=== PATIENT | female | born 1990 | race American Indian/Alaskan Native ===

== ENCOUNTER 2018-10-24 13:12 | Inpatient (IN) | payer SELFPAY ==
--- NOTE | 2018-10-24 14:06 | Emergency Department Report ---
Blank Doc - Documentation Documentation: 28 y o f with no pmh presents with left flank pain ua/upt reevaluate
[2018-10-24 14:59] LABS: Bacteria,Urine 3+ /HPF (Negative); Bilirubin,Urine NEG (Negative); Blood,Urine LG (Negative); Color,Urine Red (Yellow); Mucus,Urine 1+ /HPF
[2018-10-24 15:00] LABS: RBC,Urine > 182.0 /HPF (0.0-6.0)
[2018-10-24 15:04] LABS: HCG Qualitative,Urine Negative (Negative)
[2018-10-24] MEDS ORDERED: NACL 0.9% 1000 ML 1,000 ML IV ONE ×2 (17:48→19:56)
[2018-10-24] MEDS ORDERED: LEVAQUIN PO ONE (17:48)
[2018-10-24] MEDS ORDERED: TORADOL IV ONE (17:51)
--- NOTE | 2018-10-24 17:54 | Emergency Department Report ---
HPI - HPI HPI: Room 17 The patient is a 28-year-old female presented with a chief complaint pain. Patient states for the past 5 days she's had intermittent left flank pain described as burning in nature. Patient states Tylenol has not helped. Patient denies fever or nausea/vomiting. Patient denies dysuria or hematuria. The patient currently gives her pain a score of 7/10 Location: Left Flank Duration: 5 days Quality: burning Severity: 7/10 Modifying factors: [see above] Context: [see above] Mode of transportation: [not driving] <GASPER ALBRIGHT - Last Filed: 10/24/18 19:52> <ANNIE VALENZUELA - Last Filed: 10/25/18 05:46> - General Chief Complaint: Back Pain/Injury Time Seen by Provider: 10/24/18 14:03 ED Past Medical Hx - Past Medical History Additional medical history: Anemia - Surgical History Past Surgical History?: No - Family History Family history: no significant - Social History Smoking Status: Never Smoker Substance Use Type: None (denies illicit drug use), Alcohol (occasional) <GASPER ALBRIGHT - Last Filed: 10/24/18 19:52> <ANNIE VALENZUELA - Last Filed: 10/25/18 05:46> - Medications Home Medications: Home Medications Medication Instructions Recorded Confirmed Last Taken Type HYDROcodone/APAP 5-325 [[place] 1 - 2 each PO Q6HR PRN #14 tablet 10/24/18 Unknown Rx 5/325] RX: Ibuprofen [Motrin 800 MG tab] 800 mg PO Q8HR PRN #20 tablet 10/24/18 Unknown Rx levoFLOXacin [Levaquin TAB] 500 mg PO QDAY #10 tablet 10/24/18 Unknown Rx ED Review of Systems ROS: Stated complaint: LFT SIDE BACK PAIN/EXTREME Other details as noted in HPI Constitutional: denies: fever Eyes: denies: eye pain ENT: denies: throat pain Respiratory: no symptoms reported Cardiovascular: denies: chest pain Endocrine: no symptoms reported Gastrointestinal: abdominal pain. denies: nausea, vomiting Genitourinary: denies: dysuria, hematuria Musculoskeletal: back pain Neurological: denies: headache <GASPER ALBRIGHT - Last Filed: 10/24/18 19:52> ROS: Stated complaint: LFT SIDE BACK PAIN/EXTREME Other details as noted in HPI <ANNIE VALENZUELA - Last Filed: 10/25/18 05:46> Physical Exam - Physical Exam Vital Signs: Vital Signs 10/24/18 14:02 Temperature 98.8 F Pulse Rate 106 H Respiratory 16 Rate Blood Pressure 123/61 O2 Sat by Pulse 100 Oximetry Physical Exam: GENERAL: The patient is well-developed well-nourished female lying on stretcher not appearing to be in acute distress. [] HEENT: Normocephalic. Atraumatic. Extraocular motions are intact. Patient has moist mucous membranes. NECK: Supple. Trachea midline CHEST/LUNGS: Clear to auscultation. There is no respiratory distress noted. HEART/CARDIOVASCULAR: Regular. There is no tachycardia. There is no gallop rub or murmur. ABDOMEN: Abdomen is soft, with mild discomfort to palpation in the left lower quadrant. Patient has normal bowel sounds. There is no abdominal distention. SKIN: There is no rash. There is no edema. There is no diaphoresis. NEURO: The patient is awake, alert, and oriented. The patient is cooperative. The patient has normal speech MUSCULOSKELETAL: There is no CVA tenderness. There is no evidence of acute injury. <GASPER ALBRIGHT - Last Filed: 10/24/18 19:52> - Physical Exam Vital Signs: Vital Signs 10/24/18 10/24/18 10/24/18 14:02 17:59 18:00 Temperature 98.8 F Pulse Rate 106 H Respiratory 16 Rate Blood Pressure 123/61 Blood Pressure [Right] O2 Sat by Pulse 100 96 81 L Oximetry 10/24/18 10/24/18 10/24/18 18:10 18:16 18:28 Temperature 98.3 F Pulse Rate 135 H Respiratory 15 14 18 Rate Blood Pressure 142/53 Blood Pressure 142/53 [Right] O2 Sat by Pulse 98 98 Oximetry 10/24/18 10/24/18 10/24/18 18:30 20:06 20:27 Temperature 102.3 F H Pulse Rate 136 H 155 H Respiratory 23 25 H Rate Blood Pressure 142/53 142/53 Blood Pressure [Right] O2 Sat by Pulse 95 Oximetry <ANNIE VALENZUELA - Last Filed: 10/25/18 05:46> ED Course Vital Signs 10/24/18 14:02 Temperature 98.8 F Pulse Rate 106 H Respiratory 16 Rate Blood Pressure 123/61 O2 Sat by Pulse 100 Oximetry <GASPER ALBRIGHT - Last Filed: 10/24/18 19:52> Vital Signs 10/24/18 10/24/18 10/24/18 14:02 17:59 18:00 Temperature 98.8 F Pulse Rate 106 H Respiratory 16 Rate Blood Pressure 123/61 Blood Pressure [Right] O2 Sat by Pulse 100 96 81 L Oximetry 10/24/18 10/24/18 10/24/18 18:10 18:16 18:28 Temperature 98.3 F Pulse Rate 135 H Respiratory 15 14 18 Rate Blood Pressure 142/53 Blood Pressure 142/53 [Right] O2 Sat by Pulse 98 98 Oximetry 10/24/18 10/24/18 10/24/18 18:30 20:06 20:27 Temperature 102.3 F H Pulse Rate 136 H 155 H Respiratory 23 25 H Rate Blood Pressure 142/53 142/53 Blood Pressure [Right] O2 Sat by Pulse 95 Oximetry - Reevaluation(s) Reevaluation #1: 10/24/18 22:18 Received signout from the preceding physician, Dr. Albright, to follow-up on CT scan. CT scan interpretation is reviewed and appreciated. I go back to evaluate the patient. She complains of nontraumatic left-sided flank pain, which started over the past day or so. However, she has no pain at this time. Patient found to be tachycardic and febrile. Her abdomen is soft and benign with no rebound, guarding or peritoneal signs. She has no CVA tenderness. Patient called as a code sepsis secondary to tachycardia and fever. Additional laboratory studies are obtained. Patient is found to be anemic, and hypokalemic with a lactic acidosis. We will give her IV fluids, acetaminophen, broaden antibiotic coverage, transfuse packed red blood cells, and replete potassium. We will obtain a transvaginal ultrasound to exclude torsion, although clinically, I doubt torsion at this time and she has no abdominal tenderness or rebound. She also has no abdominal pain at this time. We will also obtain a CT scan of the abdomen and pelvis. Once her diagnostics have resulted, we will discuss with the appropriate consulting services, and arrange admission. Reevaluation #2: 10/25/18 00:[address] a/p with IV contrast suggest tubo ovarian abscess. gynecology paged Reevaluation #3: 10/25/18 00:16 CT scan and ultrasound confirmed tubo-ovarian abscess. Patient feeling improved. Discussed with multi punch operator construction accountant, Dr. James, who will see the patient in consultation. Discussed with Hospital physician, Dr. Grant, who has accepted the patient to the medical service. <INSHIANNIE PONCE - Last Filed: 10/25/18 05:46> ED Medical Decision Making - Differential Diagnosis pyelonephritis, renal colic <GASPER ALBRIGHT - Last Filed: 10/24/18 19:52> - Lab Data Result diagrams: 10/24/18 20:44 10/24/18 20:44 Vital Signs 10/24/18 10/24/18 10/24/18 14:02 17:59 18:00 Temperature 98.8 F Pulse Rate 106 H Respiratory 16 Rate Blood Pressure 123/61 Blood Pressure [Right] O2 Sat by Pulse 100 96 81 L Oximetry 10/24/18 10/24/18 10/24/18 18:10 18:16 18:28 Temperature 98.3 F Pulse Rate 135 H Respiratory 15 14 18 Rate Blood Pressure 142/53 Blood Pressure 142/53 [Right] O2 Sat by Pulse 98 98 Oximetry 10/24/18 10/24/18 10/24/18 18:30 20:06 20:16 Temperature Pulse Rate 136 H 155 H 138 H Respiratory 23 25 H 31 H Rate Blood Pressure 142/53 142/53 142/53 Blood Pressure [Right] O2 Sat by Pulse 95 90 Oximetry 10/24/18 10/24/18 10/24/18 20:27 20:30 20:46 Temperature 102.3 F H Pulse Rate 141 H 133 H Respiratory 19 28 H Rate Blood Pressure 142/53 142/53 Blood Pressure [Right] O2 Sat by Pulse 95 Oximetry Lab Results 10/24/18 10/24/18 10/24/18 Range/Units 14:20 14:20 20:44 WBC 9.7 (4.5-11.0) K/mm3 RBC 3.46 L (3.65-5.03) M/mm3 Hgb 5.2 L* (10.1-14.3) gm/dl Hct 18.5 L* (30.3-42.9) % MCV 54 L (79-97) fl MCH 15 L (28-32) pg MCHC 28 L (30-34) % RDW 21.5 H (13.2-15.2) % Plt Count 424 (140-440) K/mm3 Lymph % (Auto) Fleece Tier [place] % (Auto) Fleece Tier Eos % (Auto) Fleece Tier Baso % (Auto) Fleece Tier Lymph # Fleece Tier Perkins # Fleece Tier Eos # Fleece Tier Baso # Fleece Tier Seg Neutrophils % Fleece Tier Seg Neutrophils # Fleece Tier APTT (24.2-36.6) Sec. Sodium (137-145) mmol/L Potassium (3.6-5.0) mmol/L Chloride (98-107) mmol/L Carbon Dioxide (22-30) mmol/L Anion Gap mmol/L BUN (7-17) mg/dL Creatinine (0.7-1.2) mg/dL Estimated GFR ml/min BUN/Creatinine Ratio % Glucose (65-100) mg/dL Lactic Acid (0.7-2.0) mmol/L Calcium (8.4-10.2) mg/dL Total Bilirubin (0.1-1.2) mg/dL AST (5-40) units/L ALT (7-56) units/L Alkaline Phosphatase (35-129) units/L Total Protein (6.3-8.2) g/dL Albumin (3.9-5) g/dL Albumin/Globulin Ratio % Urine Color Red (Yellow) Urine Turbidity Slightly-cloudy (Clear) Urine pH 6.0 (5.0-7.0) Ur Specific [place] 1.011 (1.003-1.030) Urine Protein 100 mg/dl (Negative) mg/dL Urine Glucose (UA) Neg (Negative) mg/dL Urine Ketones 80 (Negative) mg/dL Urine Blood Lg (Negative) Urine Nitrite Neg (Negative) Urine Bilirubin Neg (Negative) Urine Urobilinogen 2.0 (<2.0) mg/dL Ur Leukocyte Esterase Lg (Negative) Urine WBC (Auto) 161.0 H (0.0-6.0) /HPF Urine RBC (Auto) > 182.0 (0.0-6.0) /HPF U Epithel Cells (Auto) 5.0 (0-13.0) /HPF Urine Bacteria (Auto) 3+ (Negative) /HPF Urine WBC Clumps 2+ /HPF Urine Mucus 1+ /HPF Urine HCG, Qual Negative (Negative) 10/24/18 10/24/18 10/24/18 Range/Units 20:44 20:44 20:44 WBC (4.5-11.0) K/mm3 RBC (3.65-5.03) M/mm3 Hgb (10.1-14.3) gm/dl Hct (30.3-42.9) % MCV (79-97) fl MCH (28-32) pg MCHC (30-34) % RDW (13.2-15.2) % Plt Count (140-440) K/mm3 Lymph % (Auto) Perkins % (Auto) Eos % (Auto) Baso % (Auto) Lymph # Perkins # Eos # Baso # Seg Neutrophils % Seg Neutrophils # APTT 27.6 (24.2-36.6) Sec. Sodium 137 (137-145) mmol/L Potassium 3.3 L (3.6-5.0) mmol/L Chloride 99.6 (98-107) mmol/L Carbon Dioxide 23 (22-30) mmol/L Anion Gap 18 mmol/L BUN 7 (7-17) mg/dL Creatinine 0.6 L (0.7-1.2) mg/dL Estimated GFR > 60 ml/min BUN/Creatinine Ratio 12 % Glucose 80 (65-100) mg/dL Lactic Acid 2.60 H* (0.7-2.0) mmol/L Calcium 8.0 L (8.4-10.2) mg/dL Total Bilirubin 0.70 (0.1-1.2) mg/dL AST 12 (5-40) units/L ALT 8 (7-56) units/L Alkaline Phosphatase 116 (35-129) units/L Total Protein 6.9 (6.3-8.2) g/dL Albumin 3.1 L (3.9-5) g/dL Albumin/Globulin Ratio 0.8 % Urine Color (Yellow) Urine Turbidity (Clear) Urine pH (5.0-7.0) Ur Specific [place] (1.003-1.030) Urine Protein (Negative) mg/dL Urine Glucose (UA) (Negative) mg/dL Urine Ketones (Negative) mg/dL Urine Blood (Negative) Urine Nitrite (Negative) Urine Bilirubin (Negative) Urine Urobilinogen (<2.0) mg/dL Ur Leukocyte Esterase (Negative) Urine WBC (Auto) (0.0-6.0) /HPF Urine RBC (Auto) (0.0-6.0) /HPF U Epithel Cells (Auto) (0-13.0) /HPF Urine Bacteria (Auto) (Negative) /HPF Urine WBC Clumps /HPF Urine Mucus /HPF Urine HCG, Qual (Negative) - Radiology Data Radiology results: report reviewed, image reviewed Print Report Referring Physician: GASPER ALBRIGHT Patient Name: THO PIMENTEL Date of : 1990 Sex: Female Report Date: 2018-10-24 Report Status: Finalized Findings [facility] [address] [place] [address] Cat Scan Report Signed Patient: THO PIMENTEL MR#: [id number] : 1990 Acct:[id number] Age/Sex: 28 / F ADM Date: 10/24/18 Loc: ED Attending Dr: Ordering Physician: GASPER ALBRIGHT MD Date of Service: 10/24/18 Procedure(s): CT abdomen pelvis wo con Accession Number(s): [id number] cc: GASPER ALBRIGHT MD FINAL REPORT EXAM: CT ABDOMEN PELVIS WO CON HISTORY: left flank pain TECHNIQUE: Axial helical imaging through the abdomen and pelvis the with sagittal and coronal reformatted images obtained. Comparison: None FINDINGS: The the lung bases are without infiltrate, pneumothorax or pleural fluid collection. The liver, pancreas, adrenal glands and gallbladder are unremarkable. The spleen is mildly enlarged but otherwise unremarkable. There is no evidence of hydronephrosis, hydroureter or renal calculi of either kidney. The bowel is normal caliber. The visualized portion the appendix is normal caliber. There is no evidence of pneumoperitoneum.. The abdominal aorta is normal caliber. There are prominent bilateral iliac chain, para-aortic and mesenteric lymph nodes. The largest lymph node is in the left external iliac chain the and measures approximately 2.7 centimeters in the maximal axial dimension. The urinary bladder is mildly distended and unremarkable in appearance. The uterus and right adnexal are unremarkable. The left adnexal is notable for an approximately 5.2 centimeter by 5 centimeter by a 5.3 centimeter mass in the left adnexal that most likely represents an enlarged left ovary. The there is stranding of the adjacent fat and increased thickness of the adjacent left lateral conal fascia and inferior [place] the fascia with a possible small amount of free fluid in these regions. The bony structures are unremarkable. IMPRESSION: 1. Abnormal soft tissue mass in the left adnexal a that likely represents an enlarged ovary with edema/inflammatory change in the adjacent fat and adjacent fascial planes with a possible small amount of free fluid in the adjacent region. Differential diagnosis includes infectious etiology (possible ovarian abscess) and noninfectious etiologies, tumor or possibly ovarian torsion. 2. Mildly prominent intra-abdominal and retroperitoneal lymph nodes and mild splenomegaly. Transv aginal ultrasound to evaluate for the presence or absence of flow in the left ovary and CT abdomen and pelvis with IV contrast for evaluation for possible ovarian abscess would be helpful for further evaluation. The above findings and recommendation were discussed with Dr. Valenzuela 8 20 p.m. October 24, 2018. Transcribed By: ED Dictated By: YASSINE JAMES MD Electronically Authenticated By: YASSINE JAMES MD Signed Date/Time: 10/24/182022 Referring Physician: ANNIE VALENZUELA Patient Name: THO PIMENTEL Date of : 1990 Sex: Female Report Date: 2018-10-24 Report Status: Finalized [place] [id number] Ultrasound Report Signed Patient: THO PIMENTEL MR#: [id number] : 1990 Acct:[id number] Age/Sex: 28 / F ADM Date: 10/24/18 Loc: ED Attending Dr: Ordering Physician: ANNIE VALENZUELA MD Date of Service: 10/24/18 Procedure(s): US pelvis duplex doppler comp Accession Number(s): [id number] cc: ANNIE VALENZUELA MD FINAL REPORT EXAM: US PELVIS DUPLEX DOPPLER COMP HISTORY: pelvic pain TECHNIQUE: Transabdominal grayscale, color flow and Doppler waveform imaging of the pelvis was performed for the purpose of evaluation of the left ovary. Comparison: CT abdomen and pelvis also performed today FINDINGS: V isualization detail is limited on this transabdominal study due to patient's large body habitus. A transvaginal study was not performed at the request of the patient. The right ovary is not visualized. There is a complex heterogeneous structure in the left adnexal that is presumed to be the left fallopian tube and ovary. This complex structure measures approximately 6 centimeters by 3.4 centimeters by 3 centimeters in size. Arterial flow is demonstrated in the left ovary utilizing Doppler waveform imaging. IMPRESSION: 1. Visualization detail on the transabdominal study is limited due to patient's large body habitus. 2. Demonstration of large complex structure in the left adnexal a that likely represents the fallopian tube and ovary. A tubo-ovarian abscess needs to be considered. 3. Arterial flow is demonstrated in the left ovary utilizing Doppler waveform imaging. Transcribed By: ED Dictated By: YASSINE JAMES MD Electronically Authenticated By: YASSINE JAMES MD Signed Date/Time: 10/24/18 0648 Referring Physician: ANNIE VALENZUELA Patient Name: THO PIMENTEL Date of : 1990 Sex: Female Report Date: 2018-10-25 Report Status: [place] [address] Cat Scan Report Signed Patient: THO PIMENTEL MR#: [id number] : 1990 Acct:[id number] Age/Sex: 28 / F ADM Date: 10/24/18 Loc: ED Attending Dr: Ordering Physician: ANNIE VALENZUELA MD Date of Service: 10/24/18 Procedure(s): CT abdomen pelvis w con Accession Number(s): [id number] cc: ANNIE VALENZUELA MD FINAL REPORT EXAM: CT ABDOMEN PELVIS W CON HISTORY: abd pain sepsis TECHNIQUE: Following administration of IV contrast axial helical imaging was performed through the abdomen and pelvis with sagittal and coronal reformatted images obtained. Delayed axial helical imaging was also performed through the abdomen and pelvis. Are unremarkable. Comparison: CT abdomen and pelvis without contrast also performed today and pelvic ultrasound also performed today FINDINGS: The lung bases are without infiltrate, pneumothorax or pleural fluid collection. The liver, pancreas and adrenal glands are unremarkable. The spleen is mildly enlarged but otherwise unremarkable. There is an approximately 1.3 centimeter hypodensity, probable cyst, in the left kidney. The kidneys are otherwise unremarkable. The gallbladder is moderately distended and unremarkable. The bowel is normal caliber. There are mildly prominent intraperitoneal and retroperitoneal lymph nodes. The abdominal aorta is normal caliber. There is a small amount of free fluid in the left paracolic gutter. There is a heterogeneously enhancing mass in the left adnexal a that measures approximately 5.4 centimeters by 5.1 centimeters by 5.8 centimeters. There is stranding of the adjacent fat. The uterus and right adnexal are unremarkable. The urinary bladder is mildly distended and unremarkable. The bony structures are unremarkable. There is anterior midline abdominal wall hernia that contains fat. IMPRESSION: 1. Heterogeneously enhancing mass in the left adnexal with stranding of the adjacent fat and a small amount of fluid in the left pericolic gutter. This patient with a history of abdominal pain and sepsis this most likely represents a tubo-ovarian abscess. 2. Mild splenomegaly and mildly prominent intraperitoneal and retroperitoneal lymph nodes. 3. Small probable cyst left kidney. 4. Midline anterior abdominal wall hernia that contains fat. Transcribed By: ED Dictated By: YASSINE JAMES MD Electronically Authenticated By: YASSINE JAMES MD Signed Date/Time: 10/25/18 0001 <ANNIE VALENZUELA - Last Filed: 10/25/18 05:46> Critical care attestation.: If time is entered above; I have spent that time in minutes in the direct care of this critically ill patient, excluding procedure time. <GASPER ALBRIGHT - Last Filed: 10/24/18 19:52> Critical Care Time: Yes Critical care time in (mins) excluding proc time.: 60 Critical care attestation.: If time is entered above; I have spent that time in minutes in the direct care of this critically ill patient, excluding procedure time. <ANNIE VALENZUELA - Last Filed: 10/25/18 05:46> ED Disposition <GASPER ALBRIGHT - Last Filed: 10/24/18 19:52> Is pt being admited?: Yes <ANNIE VALENZUELA - Last Filed: 10/25/18 05:46> Clinical Impression: Sepsis, Tubo-ovarian abscess, Anemia Disposition: -09 OP ADMIT IP TO THIS HOSP Condition: Serious
--- NOTE | 2018-10-24 20:23 | Cat Scan Report ---
FINAL REPORT EXAM: CT ABDOMEN PELVIS WO CON HISTORY: left flank pain TECHNIQUE: Axial helical imaging through the abdomen and pelvis the with sagittal and coronal reform atted images obtained. Comparison: None FINDINGS: The the lung bases are without infiltrate, pneumothorax or pleural fluid collection. The liver, pancreas, adrenal glands and gallbladder are unremarkable. The spleen is mildly enlarged but otherwise unremarkable. There is no evidence of hydronephrosis, hydroureter or renal calculi of either kidney. The bowel is normal caliber. The visualized portion the appendix is normal caliber. There is no evidence of pneumoperitoneum.. The abdominal aorta is normal caliber. There are prominent bilateral iliac chain, para-aortic and mesenteric lymph nodes. The largest lymph node is in the left external iliac chain the and measures approximately 2.7 centimeters in the allen l axial dimension. The urinary bladder is mildly distended and unremarkable in appearance. The uterus and right adnexal are unremarkable. The left adnexal is notable for an approximately 5.2 centimeter by 5 centimeter by a 5.3 centimeter m ass in the left adnexal that most likely represents an enlarged left ovary. The there is stranding of the adjacent fat and increased thickness of the adjacent left lateral conal fascia and inferior Jose Eduardo tas the fascia with a possible small amount of free fluid in these regions. The bony structures are unremarkable. IMPRESSION: 1. Abnormal soft tissue mass in the left adnexal a that likely represents an enlarged ovary with greg a/inflammatory change in the adjacent fat and adjacent fascial planes with a possible small amount of free fluid in the adjacent region. Differential diagnosis includes infectious etiology (possible ova kaden abscess) and noninfectious etiologies, tumor or possibly ovarian torsion. 2. Mildly prominent intra-abdominal and retroperitoneal lymph nodes and mild splenomegaly. Transvaginal ultrasound to evaluate for the presence or absence of flow in the left ovary and CT abdo men and pelvis with IV contrast for evaluation for possible ovarian abscess would be helpful for furt her evaluation. The above findings and recommendation were discussed with Dr. Valenzuela 8 20 p.m. October 24, 2018.
[2018-10-24] MEDS ORDERED: TYLENOL PO PRN (20:37)
[2018-10-24] MEDS ORDERED: NACL 0.9% 1000 ML IV ONE (20:37)
[2018-10-24] MEDS ORDERED: CLEOCIN 600 MG/50 mL 600 MG/50 ML BAG IV ONE (20:38)
[2018-10-24] MEDS ORDERED: GENTAMICIN 120 MG in NACL 0.9% 100 ML IV STA (20:38)
[2018-10-24] MEDS ORDERED: AMPICILLIN 1,000 MG in NACL 0.9% 50 ML IV ONE (20:38)
[2018-10-24] MEDS ORDERED: AMPICILLIN/NS 1 GM/50 ML 1 GM/50 ML BAG IV ONE (21:00)
[2018-10-24] MEDS ORDERED: GENTAMICIN/NS 120MG/100ML 120 MG/100 ML BAG IV ONE (21:00)
[2018-10-24 21:26] LABS: Mean Corpuscular HGB Conc 28 % (30-34); Platelet Count 424 K/mm3 (140-440); Red Blood Count 3.46 M/mm3 (3.65-5.03)
[2018-10-24 21:34] LABS: Hematocrit 18.5 % (30.3-42.9); Hemoglobin 5.2 gm/dl (10.1-14.3); Mean Corpuscular Volume 54 fl (79-97); Red Cell Distribution Width 21.5 % (13.2-15.2)
[2018-10-24 21:35] LABS: Alanine Aminotransferase 8 units/L (7-56); Albumin 3.1 g/dL (3.9-5); BUN/Creatinine Ratio 12; Blood Urea Nitrogen 7 mg/dL (7-17); Hemolysis Index 0
[2018-10-24] MEDS ORDERED: DILAUDID IV ONE (21:59)
[2018-10-24] MEDS ORDERED: K-DUR PO ONE (22:17)
[2018-10-24] MEDS ORDERED: NACL 0.9% 500 ML 500 ML IV ONE (22:17)
[2018-10-24 22:44] LABS: Band Neutrophils # (Manual) 1.7 K/mm3; Basophils % (Manual) 0 % (0.0-1.8); Eosinophils % (Manual) 0 % (0.0-4.3); Hypochromasia 3+; Monocytes % (Manual) 0 % (0.0-7.3); Total Cells Counted 100
[2018-10-24 22:45] LABS: Anisocytosis 1+; Giant Platelets Few; Large Platelets Few; Platelet Estimate Appears Increased
[2018-10-24 22:46] LABS: Ovalocytes Few; Poikilocytosis Few
[2018-10-24] MEDS ORDERED: KCL 10MEQ/100ML 10 MEQ/100 ML BAG IV SCH (23:00)
--- NOTE | 2018-10-24 23:09 | Ultrasound Report ---
FINAL REPORT EXAM: US PELVIS DUPLEX DOPPLER COMP HISTORY: pelvic pain TECHNIQUE: Transabdominal grayscale, color flow and Doppler waveform imaging of the pelvis was perfo rmed for the purpose of evaluation of the left ovary. Comparison: CT abdomen and pelvis also performed today FINDINGS: Visualization detail is limited on this transabdominal study due to patient's large body habitus. A t ransvaginal study was not performed at the request of the patient. The right ovary is not visualized. There is a complex heterogeneous structure in the left adnexal that is presumed to be the left fallop darrel tube and ovary. This complex structure measures approximately 6 centimeters by 3.4 centimeters by 3 centimeters in size. Arterial flow is demonstrated in the left ovary utilizing Doppler waveform imaging. IMPRESSION: 1. Visualization detail on the transabdominal study is limited due to patient's large body habitus. 2. Demonstration of large complex structure in the left adnexal a that likely represents the fallopia n tube and ovary. A tubo-ovarian abscess needs to be considered. 3. Arterial flow is demonstrated in the left ovary utilizing Doppler waveform imaging.
[2018-10-24] MEDS ORDERED: NACL 0.9% 1000 ML 1,000 ML ONE (23:23)
[2018-10-24] MEDS ORDERED: MAGNESIUM SULFATE 2GM/50ML 2 GM/50 ML BAG IV ONE (23:33)
[2018-10-24] MEDS ORDERED: MAG-OX PO STA (23:33)
--- NOTE | 2018-10-25 00:01 | Cat Scan Report ---
FINAL REPORT EXAM: CT ABDOMEN PELVIS W CON HISTORY: abd pain sepsis TECHNIQUE: Following administration of IV contrast axial helical imaging was performed through the a bdomen and pelvis with sagittal and coronal reformatted images obtained. Delayed axial helical imagin g was also performed through the abdomen and pelvis. Are unremarkable. Comparison: CT abdomen and pelvis without contrast also performed today and pelvic ultrasound also pe rformed today FINDINGS: The lung bases are without infiltrate, pneumothorax or pleural fluid collection. The liver, pancreas and adrenal glands are unremarkable. The spleen is mildly enlarged but otherwise unremarkable. There is an approximately 1.3 centimeter hypodensity, probable cyst, in the left kidney. The kidneys are otherwise unremarkable. The gallbladder is moderately distended and unremarkable. The bowel is normal caliber. There are mildly prominent intraperitoneal and retroperitoneal lymph nodes. The abdominal aorta is normal caliber. There is a small amount of free fluid in the left paracolic gutter. There is a heterogeneously enhancing mass in the left adnexal a that measures approximately 5.4 centi meters by 5.1 centimeters by 5.8 centimeters. There is stranding of the adjacent fat. The uterus and right adnexal are unremarkable. The urinary bladder is mildly distended and unremarkable. The bony structures are unremarkable. There is anterior midline abdominal wall hernia that contains fat. IMPRESSION: 1. Heterogeneously enhancing mass in the left adnexal with stranding of the adjacent fat and a small amount of fluid in the left pericolic gutter. This patient with a history of abdominal pain and sepsi s this most likely represents a tubo-ovarian abscess. 2. Mild splenomegaly and mildly prominent intraperitoneal and retroperitoneal lymph nodes. 3. Small probable cyst left kidney. 4. Midline anterior abdominal wall hernia that contains fat.
[2018-10-25] MEDS ORDERED: NACL 0.9% 500 ML 500 ML ONE (00:54)
[2018-10-25] MEDS ORDERED: SODIUM CHLORIDE FLUSH SYRINGE 10 ML IV PRN (01:16)
[2018-10-25] MEDS ORDERED: ZOFRAN IV PRN ×2 (01:16→11:00)
[2018-10-25] MEDS ORDERED: TYLENOL PO PRN (01:16)
--- NOTE | 2018-10-25 01:18 | History and Physical Report ---
History of Present Illness Date of examination: 10/25/18 History of present illness: 28-year-old woman with no medical problems comes to the emergency room with left flank pain and it's been ongoing for 5 days. She describes it as a burning sensation, constant, intensity 8/10, no radiation, relieved with pain medication given in the emergency room. She took some Tylenol at home without any relief. She states she feels dizzy, she has heavy menstrual cycle lasting up to one month. She was scheduled for blood transfusion in [place], but she recently relocated to [place] and did not get transfused Review of systems Constitutional: no weight loss, chills, fever Ears, eyes, nose, mouth and throat: no nasal congestion, no nasal discharge, no sinus pressure, no vision change, no red eye. Neck: No neck pain or rigidity. Cardiovascular: no palpitations, chest pain Respiratory: no cough, shortness of breath Gastrointestinal: no hematochezia, abdominal pain Genitourinary : no frequency , no hematuria Musculoskeletal: no joint swelling or muscle ache Integumentary: no rash, no pruritis Neurological: no parathesias, no focal weakness Endocrine: no cold or heat intolerance, no polyuria or polydipsia Hematologic/Lymphatic: no easy bruising, no easy bleeding, no gland swelling Allergic/Immunologic: no urticaria, no angioedema. PAST MEDICAL HISTORY: None PAST SURGICAL HISTORY: None SOCIAL HISTORY: +alcohol, Denies drugs, tobacco FAMILY HISTORY: Hypertension Medications and Allergies Allergies Allergy/AdvReac Type Severity Reaction Status Date / Time No Known Allergies Allergy Verified 10/24/18 14:02 Home Medications Medication Instructions Recorded Confirmed Last Taken Type HYDROcodone/APAP 5-325 [[place] 1 - 2 each PO Q6HR PRN #14 tablet 10/24/18 Unknown Rx 5/325] RX: Ibuprofen [Motrin 800 MG tab] 800 mg PO Q8HR PRN #20 tablet 10/24/18 Unknown Rx levoFLOXacin [Levaquin TAB] 500 mg PO QDAY #10 tablet 10/24/18 Unknown Rx Active Meds: Active Medications Acetaminophen (Tylenol) 650 mg PO Q6H PRN PRN Reason: Pain, Mild (1-3) Last Admin: 10/24/18 20:51 Dose: 650 mg Documented by: Exam - Physical Exam Narrative exam: General Apperance: The patient lying in bed, breathing comfortable HEENT: Normocephalic, atraumatic. Pupils equally round and reactive to light, EOMI, no sclericterus or JVD or thyromegaly or nodule. , no carotid bruit, mucous membranes moist, no exudate or erythema Heart: S1-S2, regular is rhythm Lungs: Clear to auscultation bilaterally, breathing comfortable Abdomen: Positive bowel sounds, soft, nontender, nondistended, no organomegaly Extremities: No edema cyanosis clubbing Skin: no rash, nodule, warm and dry Neuro: cranial nerves 2-12 intact, speech is fluent, motor/sensory intact - Constitutional Vitals: Temp Pulse Resp BP Pulse Ox 99.6 F 119 H 29 H 100/60 100 10/25/18 01:16 10/25/18 01:10 10/25/18 01:10 10/25/18 01:10 10/25/18 01:10 Results - Labs CBC & Chem 7: 10/27/18 04:23 10/27/18 04:23 Labs: Abnormal lab results 10/24/18 10/24/18 10/24/18 Range/Units 14:20 20:44 20:44 RBC 3.46 L (3.65-5.03) M/mm3 Hgb 5.2 L* (10.1-14.3) gm/dl Hct 18.5 L* (30.3-42.9) % MCV 54 L (79-97) fl MCH 15 L (28-32) pg MCHC 28 L (30-34) % RDW 21.5 H (13.2-15.2) % Seg Neuts % (Manual) 82.0 H (40.0-70.0) % Lymphocytes % (Manual) 0 L (13.4-35.0) % Nucleated RBC % 2.0 H (0.0-0.9) % Seg Neutrophils # Man 8.0 H (1.8-7.7) K/mm3 Lymphocytes # (Manual) 0.0 L (1.2-5.4) K/mm3 Potassium 3.3 L (3.6-5.0) mmol/L Creatinine 0.6 L (0.7-1.2) mg/dL Lactic Acid (0.7-2.0) mmol/L Calcium 8.0 L (8.4-10.2) mg/dL Magnesium (1.7-2.3) mg/dL Albumin 3.1 L (3.9-5) g/dL Urine WBC (Auto) 161.0 H (0.0-6.0) /HPF Crossmatch 10/24/18 10/24/18 10/24/18 Range/Units 20:44 23:00 23:00 RBC (3.65-5.03) M/mm3 Hgb (10.1-14.3) gm/dl Hct (30.3-42.9) % MCV (79-97) fl MCH (28-32) pg MCHC (30-34) % RDW (13.2-15.2) % Seg Neuts % (Manual) (40.0-70.0) % Lymphocytes % (Manual) (13.4-35.0) % Nucleated RBC % (0.0-0.9) % Seg Neutrophils # Man (1.8-7.7) K/mm3 Lymphocytes # (Manual) (1.2-5.4) K/mm3 Potassium (3.6-5.0) mmol/L Creatinine (0.7-1.2) mg/dL Lactic Acid 2.60 H* (0.7-2.0) mmol/L Calcium (8.4-10.2) mg/dL Magnesium 1.40 L (1.7-2.3) mg/dL Albumin (3.9-5) g/dL Urine WBC (Auto) (0.0-6.0) /HPF Crossmatch See Detail - Imaging and Cardiology CT scan - abdomen: report reviewed CT scan - pelvis: report reviewed Assessment and Plan Ultrasound of the pelvic, transvaginal, abdominal review Assessment and plan Sepsis Tubo-ovarian abscess Anemia, blood loss secondary to menorrhagia Plan Start IV fluids, Unasyn, doxycline, follow cultures GRAPHITE MILL OPERATOR was consulted to see the patient in the emergency room Transfuse packed red blood cells, IV morphine DVT prophylaxis
[2018-10-25] MEDS ORDERED: NACL 0.9% 1000 ML 1,000 ML IV SCH (02:00)
[2018-10-25] MEDS ORDERED: UNASYN/NS 3 GM/100 ML 3 GM/100 ML BAG IV SCH (06:00)
--- NOTE | 2018-10-25 07:29 | Progress Note ---
Assessment and Plan Assessment and plan: Patient is a 28 yo woman with a history of anemia and heavy menses who presented to [facility] ED with left flank abd pains * CT abd/pelvis without contrast IMPRESSION: 1. Abnormal soft tissue mass in the left adnexal a that likely represents an enlarged ovary with edema/inflammatory change in the adjacent fat and adjacent fascial planes with a possible small amount of free fluid in the adjacent region. Differential diagnosis includes infectious etiology (possible ovarian abscess) and noninfectious etiologies, tumor or possibly ovarian torsion. 2. Mildly prominent intra-abdominal and retroperitoneal lymph nodes and mild splenomegaly. Transvaginal ultrasound to evaluate for the presence or absence of flow in the left ovary and CT abdomen and pelvis with IV contrast for evaluation for possible ovarian abscess would be helpful for further evaluation. * CT abd/pelvis with IV contrast IMPRESSION: 1. Heterogeneously enhancing mass in the left adnexal with stranding of the adjacent fat and a small amount of fluid in the left pericolic gutter. This patient with a history of abdominal pain and sepsis this most likely represents a tubo-ovarian abscess. 2. Mild splenomegaly and mildly prominent intraperitoneal and retroperitoneal lymph nodes. 3. Small probable cyst left kidney. 4. Midline anterior abdominal wall hernia that contains fat. * US pelvis duplex complete IMPRESSION: 1. Visualization detail on the transabdominal study is limited due to patient's large body habitus. 2. Demonstration of large complex structure in the left adnexal a that likely represents the fallopian tube and ovary. A tubo-ovarian abscess needs to be considered. 3. Arterial flow is demonstrated in the left ovary utilizing Doppler waveform imaging. Sepsis due to suspected Tubo-ovarian abscess, 1.3cm: recovery room rn consulted, treated with IV Unasyn + oral Doxcycline, IVF==>I consulted ID and they adjusted abx Acute on chronic blood loss anemia, hgb 5.2 most Menorrhagia: 2 units PRBC transfused, repeat H?H Acute hypoxic respiratory failure due to severe anemia, poa: pulse ox dropped to 85% on 2liters so I had to increased O2 5 liters before sat improved to 90%, consult respiratory Hypokalemia: repleted, recheck AM Hypomagnesemia: repleted, recheck in AM UTI with sepsis vs PID leading to Tubo-Ovarian abscess: treat as above Morbid Obese, bmi 50.2: residence counselor on lifestyle modification Patient has adopted kids because she is in a same sex relationship, no sexual instrumentation used or IUD present Prolonged inpatient services 32 minutes CCT 35 minutes History Interval history: Patient was seen and examined. Follow-up on current diagnosis of Abd pains. Overnight uneventful. Patient denies any chest pain, shortness breath, nausea/vomiting or severe headaches. Imaging, nursing note, chart, labs and old chart reviewed. Discussed with patient. Hospitalist Physical - Physical exam Narrative exam: Gen: ill appearing, mo BMI 50.2, NAD, Awake, Alert, Orientated HEENT: NCAT, EOMI, PERRL, OP Clear Neck: supple, no adenopathy, no thyromegaly, no JVD CVS/Heart: Regular tachycardia, normal S1S2, pulses present bilaterally Chest/Lungs: CTA B, Symmetrical chest expansion, good air entry bilaterally GI/Abdomen: soft, +tender left flank, good bowel sounds, no guarding or rebound /Bladder: mild suprapubic tenderness,no CVA or paraspinal tenderness Extermity/Skin: no c/c/e, no obvious rash MSK: FROM x 4 Neuro: CN 2-12 grossly intact, no new focal deficits Psych: calm - Constitutional Vitals: Temp Pulse Resp BP Pulse Ox 99.0 F 103 H 24 104/47 98 10/25/18 04:00 10/25/18 07:20 10/25/18 07:20 10/25/18 07:20 10/25/18 07:20 Results - Labs CBC & Chem 7: 10/24/18 20:44 10/24/18 20:44 Labs: Laboratory Last Values WBC 9.7 K/mm3 (4.5-11.0) 10/24/18 20:44 RBC 3.46 M/mm3 (3.65-5.03) L 10/24/18 20:44 Hgb 5.2 gm/dl (10.1-14.3) L* 10/24/18 20:44 Hct 18.5 % (30.3-42.9) L* 10/24/18 20:44 MCV 54 fl (79-97) L 10/24/18 20:44 MCH 15 pg (28-32) L 10/24/18 20:44 MCHC 28 % (30-34) L 10/24/18 20:44 RDW 21.5 % (13.2-15.2) H 10/24/18 20:44 Plt Count 424 K/mm3 (140-440) 10/24/18 20:44 Lymph % (Auto) Spray Machine Operator 10/24/18 20:44 [place] % (Auto) Spray Machine Operator 10/24/18 20:44 Eos % (Auto) Spray Machine Operator 10/24/18 20:44 Baso % (Auto) Spray Machine Operator 10/24/18 20:44 Lymph # Spray Machine Operator 10/24/18 20:44 [place] # Spray Machine Operator 10/24/18 20:44 Eos # Spray Machine Operator 10/24/18 20:44 Baso # Spray Machine Operator 10/24/18 20:44 Add Manual Diff Complete 10/24/18 20:44 Total Counted 100 10/24/18 20:44 Seg Neutrophils % Spray Machine Operator 10/24/18 20:44 Seg Neuts % (Manual) 82.0 % (40.0-70.0) H 10/24/18 20:44 Band Neutrophils % 18.0 % 10/24/18 20:44 Lymphocytes % (Manual) 0 % (13.4-35.0) L 10/24/18 20:44 Reactive Lymphs % (Man) 0 % 10/24/18 20:44 Monocytes % (Manual) 0 % (0.0-7.3) 10/24/18 20:44 Eosinophils % (Manual) 0 % (0.0-4.3) 10/24/18 20:44 Basophils % (Manual) 0 % (0.0-1.8) 10/24/18 20:44 Metamyelocytes % 0 % 10/24/18 20:44 Myelocytes % 0 % 10/24/18 20:44 Promyelocytes % 0 % 10/24/18 20:44 Blast Cells % 0 % 10/24/18 20:44 Nucleated RBC % 2.0 % (0.0-0.9) H 10/24/18 20:44 Seg Neutrophils # Spray Machine Operator 10/24/18 20:44 Seg Neutrophils # Man 8.0 K/mm3 (1.8-7.7) H 10/24/18 20:44 Band Neutrophils # 1.7 K/mm3 10/24/18 20:44 Lymphocytes # (Manual) 0.0 K/mm3 (1.2-5.4) L 10/24/18 20:44 Abs React Lymphs (Man) 0.0 K/mm3 10/24/18 20:44 Monocytes # (Manual) 0.0 K/mm3 (0.0-0.8) 10/24/18 20:44 Eosinophils # (Manual) 0.0 K/mm3 (0.0-0.4) 10/24/18 20:44 Basophils # (Manual) 0.0 K/mm3 (0.0-0.1) 10/24/18 20:44 Metamyelocytes # 0.0 K/mm3 10/24/18 20:44 Myelocytes # 0.0 K/mm3 10/24/18 20:44 Promyelocytes # 0.0 K/mm3 10/24/18 20:44 Blast Cells # 0.0 K/mm3 10/24/18 20:44 WBC Morphology Not Reportable 10/24/18 20:44 Hypersegmented Neuts Not Reportable 10/24/18 20:44 Hyposegmented Neuts Not Reportable 10/24/18 20:44 Hypogranular Neuts Not Reportable 10/24/18 20:44 Smudge Cells Not Reportable 10/24/18 20:44 Toxic Granulation Not Reportable 10/24/18 20:44 Toxic Vacuolation Not Reportable 10/24/18 20:44 Dohle Bodies Not Reportable 10/24/18 20:44 Pelger-Huet Anomaly Not Reportable 10/24/18 20:44 Babak Rods Not Reportable 10/24/18 20:44 Platelet Estimate Appears increased 10/24/18 20:44 Clumped Platelets Not Reportable 10/24/18 20:44 Plt Clumps, EDTA Not Reportable 10/24/18 20:44 Large Platelets Few 10/24/18 20:44 Giant Platelets Few 10/24/18 20:44 Platelet Satelliting Not Reportable 10/24/18 20:44 Plt Morphology Comment Not Reportable 10/24/18 20:44 RBC Morphology Not Reportable 10/24/18 20:44 Dimorphic RBCs Not Reportable 10/24/18 20:44 Polychromasia Few 10/24/18 20:44 Hypochromasia 3+ 10/24/18 20:44 Poikilocytosis Few 10/24/18 20:44 Anisocytosis 1+ 10/24/18 20:44 Microcytosis 3+ 10/24/18 20:44 Macrocytosis Not Reportable 10/24/18 20:44 Spherocytes Not Reportable 10/24/18 20:44 Pappenheimer Bodies Not Reportable 10/24/18 20:44 Sickle Cells Not Reportable 10/24/18 20:44 Target Cells Not Reportable 10/24/18 20:44 Tear Drop Cells Not Reportable 10/24/18 20:44 Ovalocytes Few 10/24/18 20:44 Helmet Cells Not Reportable 10/24/18 20:44 Coker-[place]ging[place] Bodies Not Reportable 10/24/18 20:44 Pe[place] Rings Not Reportable 10/24/18 20:44 [place] Cells Not Reportable 10/24/18 20:44 Bite Cells Not Reportable 10/24/18 20:44 Crenated Cell Not Reportable 10/24/18 20:44 Elliptocytes Not Reportable 10/24/18 20:44 Acanthocytes (Spur) Not Reportable 10/24/18 20:44 Rouleaux Not Reportable 10/24/18 20:44 Hemoglobin C Crystals Not Reportable 10/24/18 20:44 Schistocytes Not Reportable 10/24/18 20:44 Malaria parasites Not Reportable 10/24/18 20:44 Jose Enrique Bodies Not Reportable 10/24/18 20:44 Hem Pathologist Commnt No 10/24/18 20:44 APTT 27.6 Sec. (24.2-36.6) 10/24/18 20:44 Sodium 137 mmol/L (137-145) 10/24/18 20:44 Potassium 3.3 mmol/L (3.6-5.0) L 10/24/18 20:44 Chloride 99.6 mmol/L (98-107) 10/24/18 20:44 Carbon Dioxide 23 mmol/L (22-30) 10/24/18 20:44 Anion Gap 18 mmol/L 10/24/18 20:44 BUN 7 mg/dL (7-17) 10/24/18 20:44 Creatinine 0.6 mg/dL (0.7-1.2) L 10/24/18 20:44 Estimated GFR > 60 ml/min 10/24/18 20:44 BUN/Creatinine Ratio 12 % 10/24/18 20:44 Glucose 80 mg/dL (65-100) 10/24/18 20:44 Lactic Acid 1.90 mmol/L (0.7-2.0) 10/25/18 04:32 Calcium 8.0 mg/dL (8.4-10.2) L 10/24/18 20:44 Magnesium 1.40 mg/dL (1.7-2.3) L 10/24/18 23:00 Total Bilirubin 0.70 mg/dL (0.1-1.2) 10/24/18 20:44 AST 12 units/L (5-40) 10/24/18 20:44 ALT 8 units/L (7-56) 10/24/18 20:44 Alkaline Phosphatase 116 units/L (35-129) 10/24/18 20:44 Total Protein 6.9 g/dL (6.3-8.2) 10/24/18 20:44 Albumin 3.1 g/dL (3.9-5) L 10/24/18 20:44 Albumin/Globulin Ratio 0.8 % 10/24/18 20:44 Urine Color Red (Yellow) 10/24/18 14:20 Urine Turbidity Slightly-cloudy (Clear) 10/24/18 14:20 Urine pH 6.0 (5.0-7.0) 10/24/18 14:20 Ur Specific [place] 1.011 (1.003-1.030) 10/24/18 14:20 Urine Protein 100 mg/dl mg/dL (Negative) 10/24/18 14:20 Urine Glucose (UA) Neg mg/dL (Negative) 10/24/18 14:20 Urine Ketones 80 mg/dL (Negative) 10/24/18 14:20 Urine Blood Lg (Negative) 10/24/18 14:20 Urine Nitrite Neg (Negative) 10/24/18 14:20 Urine Bilirubin Neg (Negative) 10/24/18 14:20 Urine Urobilinogen 2.0 mg/dL (<2.0) 10/24/18 14:20 Ur Leukocyte Esterase Lg (Negative) 10/24/18 14:20 Urine WBC (Auto) 161.0 /HPF (0.0-6.0) H 10/24/18 14:20 Urine RBC (Auto) > 182.0 /HPF (0.0-6.0) 10/24/18 14:20 U Epithel Cells (Auto) 5.0 /HPF (0-13.0) 10/24/18 14:20 Urine Bacteria (Auto) 3+ /HPF (Negative) 10/24/18 14:20 Urine WBC Clumps 2+ /HPF 10/24/18 14:20 Urine Mucus 1+ /HPF 10/24/18 14:20 Urine HCG, Qual Negative (Negative) 10/24/18 14:20 Blood Type O POSITIVE 10/24/18 23:00 Antibody Screen Negative 10/24/18 23:00 Crossmatch See Detail 10/24/18 23:00
[2018-10-25] MEDS: SODIUM CHLORIDE FLUSH SYRINGE 10 ML IV SCH (10:00)
[2018-10-25] MEDS ORDERED: VIBRAMYCIN PO SCH (10:00)
[2018-10-25] MEDS: KCL 10MEQ/100ML 10 MEQ/100 ML BAG IV SCH ×2 (11:39→15:23)
[2018-10-25] MEDS: DOXYCYCLINE HYCLATE 100 MG in NACL 0.9% 250ML 250 ML IV SCH ×2 (11:40→23:34)
[2018-10-25 12:12] LABS: Hematocrit 25.9 % (30.3-42.9); Hemoglobin 7.6 gm/dl (10.1-14.3)
--- NOTE | 2018-10-25 12:26 | Consultation ---
History of Present Illness - Reason for Consult Consult date: 10/25/18 TOA, sepsis Requesting physician: YUNIOR COLINDRES - History of Present Illness The patient is a 28-year-old female with morbid obesity, irregular menses and prior D&C several years ago, otherwise no significant past medical history presented to the emergency room last night with complaints of left-sided flank pain and lower abdominal pain that apparently began last Sunday, was going on for the last 5-6 days and getting worse. Here, she was also noted to have a fever. She is not the best of historians but reports there has been some constant vaginal discharge for the last 3-4 weeks, light brown to reddish in color. She underwent a CT abdomen and pelvis which showed findings concerning for a possible tubo-ovarian abscess and hence infectious diseases was consulted. She reports her pain is almost gone after receiving IV antibiotics and pain medications. She reports one episode of vomiting. She denies any previous history of STDs. She reports she has not been sexually active in about one year. She is currently with a girlfriend but has been sexually active with males also in the past. Denies smoking, recreational drugs. Reports occasional alcohol intake. Review of Systems: General: + fever, no chills or rigors HEENT: no new visual disturbance Respiratory: No cough, sputum, hemoptysis or shortness of breath Cardiovascular: No chest pain, syncope Gastrointestinal: No nausea, vomiting or diarrhea Genitourinary: No dysuria or hematuria Musculoskeletal: No new or worsening neck pain. Left flank pain Neurologic: No headaches, seizures Hematologic: No easy bruising or bleeding Endocrine: No night sweats or acute weight loss Skin: negative for rash, jaundice Psychiatric: No suicidal or homicidal ideation Medications and Allergies Allergies Allergy/AdvReac Type Severity Reaction Status Date / Time No Known Allergies Allergy Verified 10/24/18 14:02 Home Medications Medication Instructions Recorded Confirmed Last Taken Type HYDROcodone/APAP 5-325 [[place] 1 - 2 each PO Q6HR PRN #14 tablet 10/24/18 Unknown Rx 5/325] Ibuprofen [Motrin 800 MG tab] 800 mg PO Q8HR PRN #20 tablet 10/24/18 Unknown Rx levoFLOXacin [Levaquin TAB] 500 mg PO QDAY #10 tablet 10/24/18 Unknown Rx Active Meds: Active Medications Acetaminophen (Tylenol) 650 mg PO Q6H PRN PRN Reason: Non Cardiac Pain or Temp>100.5 Sodium Chloride (Nacl 0.9% 1000 Ml) 1,000 mls @ 150 mls/hr IV DIRECT IVETH Last Admin: 10/25/18 11:41 Dose: 150 mls/hr Documented by: Potassium Chloride (Kcl 10meq/100ml) 10 meq in 100 mls @ 100 mls/hr IV Q1H IVETH Stop: 10/25/18 12:59 Last Admin: 10/25/18 11:39 Dose: 100 mls/hr Documented by: Doxycycline Hyclate 100 mg/ (Sodium Chloride) 250 mls @ 250 mls/hr IV Q12HR IVETH; Protocol Last Admin: 10/25/18 11:40 Dose: 250 mls/hr Documented by: Ceftriaxone Sodium (Rocephin/Ns 2 Gm/100 Ml) 2 gm in 100 mls @ 200 mls/hr IV Q24HR IVETH; Protocol Metronidazole (Flagyl 500 Mg/100 Ml) 500 mg in 100 mls @ 100 mls/hr IV Q8HR IVETH; Protocol Morphine Sulfate (Morphine) 2 mg IV Q4H PRN PRN Reason: Pain, Moderate (4-6) Ondansetron HCl (Zofran) 4 mg IV Q4H PRN PRN Reason: Nausea And Vomiting Last Admin: 10/25/18 11:40 Dose: 4 mg Documented by: Sodium Chloride (Sodium Chloride Flush Syringe 10 Ml) 10 ml IV BID [facility] Last Admin: 10/25/18 10:00 Dose: 10 ml Documented by: Sodium Chloride (Sodium Chloride Flush Syringe 10 Ml) 10 ml IV PRN PRN PRN Reason: LINE FLUSH Physical Examination - Physical Exam Narrative exam: Physical Exam: Constitutional: Alert, cooperative. No acute distress Head, Ears, Nose: Normocephalic, atraumatic. External ears, nose normal Eyes: Conjunctivae/corneas clear. No icterus. No ptosis. Neck: Supple, no meningeal signs Oral: no ulcers, no thrush Cardiovascular: S1, S2 normal. Respiratory: Good air entry, clear to auscultation bilaterally GI: Soft, minimal to no tenderness in lower abdomen; bowel sounds normal. No peritoneal signs Musculoskeletal: No pedal edema, no cyanosis. Skin: No rash or abscess Hem/Lymphatic: No palpable cervical or supraclavicular nodes. No lymphangitis Psych: Mood ok. Affect normal Neurological: Awake, alert, oriented. No gross abnormality - Constitutional Vitals: Vital Signs Temp Pulse Resp BP Pulse Ox 100.5 F H 129 H 21 115/31 97 10/25/18 08:00 10/25/18 09:30 10/25/18 09:30 10/25/18 09:30 10/25/18 09:30 Temperature -Last 24 Hours Temperature 100.5 F Temperature 99.0 F Temperature 99.9 F Temperature 99.2 F Temperature 99.2 F Temperature 99.2 F Temperature 99.6 F Temperature 99.6 F Temperature 100 F Temperature 99.9 F Temperature 102.3 F Temperature 98.3 F Temperature 98.8 F Results - Labs CBC & Chem 7: 10/25/18 11:48 10/24/18 20:44 Labs: Abnormal lab results 10/24/18 10/24/18 10/24/18 Range/Units 14:20 20:44 20:44 RBC 3.46 L (3.65-5.03) M/mm3 Hgb 5.2 L* (10.1-14.3) gm/dl Hct 18.5 L* (30.3-42.9) % MCV 54 L (79-97) fl MCH 15 L (28-32) pg MCHC 28 L (30-34) % RDW 21.5 H (13.2-15.2) % Seg Neuts % (Manual) 82.0 H (40.0-70.0) % Lymphocytes % (Manual) 0 L (13.4-35.0) % Nucleated RBC % 2.0 H (0.0-0.9) % Seg Neutrophils # Man 8.0 H (1.8-7.7) K/mm3 Lymphocytes # (Manual) 0.0 L (1.2-5.4) K/mm3 Potassium 3.3 L (3.6-5.0) mmol/L Creatinine 0.6 L (0.7-1.2) mg/dL Lactic Acid (0.7-2.0) mmol/L Calcium 8.0 L (8.4-10.2) mg/dL Magnesium (1.7-2.3) mg/dL Albumin 3.1 L (3.9-5) g/dL Urine WBC (Auto) 161.0 H (0.0-6.0) /HPF Crossmatch 10/24/18 10/24/18 10/24/18 Range/Units 20:44 23:00 23:00 RBC (3.65-5.03) M/mm3 Hgb (10.1-14.3) gm/dl Hct (30.3-42.9) % MCV (79-97) fl MCH (28-32) pg MCHC (30-34) % RDW (13.2-15.2) % Seg Neuts % (Manual) (40.0-70.0) % Lymphocytes % (Manual) (13.4-35.0) % Nucleated RBC % (0.0-0.9) % Seg Neutrophils # Man (1.8-7.7) K/mm3 Lymphocytes # (Manual) (1.2-5.4) K/mm3 Potassium (3.6-5.0) mmol/L Creatinine (0.7-1.2) mg/dL Lactic Acid 2.60 H* (0.7-2.0) mmol/L Calcium (8.4-10.2) mg/dL Magnesium 1.40 L (1.7-2.3) mg/dL Albumin (3.9-5) g/dL Urine WBC (Auto) (0.0-6.0) /HPF Crossmatch See Detail 10/25/18 Range/Units 11:48 RBC (3.65-5.03) M/mm3 Hgb 7.6 L (10.1-14.3) gm/dl Hct 25.9 L D (30.3-42.9) % MCV (79-97) fl MCH (28-32) pg MCHC (30-34) % RDW (13.2-15.2) % Seg Neuts % (Manual) (40.0-70.0) % Lymphocytes % (Manual) (13.4-35.0) % Nucleated RBC % (0.0-0.9) % Seg Neutrophils # Man (1.8-7.7) K/mm3 Lymphocytes # (Manual) (1.2-5.4) K/mm3 Potassium (3.6-5.0) mmol/L Creatinine (0.7-1.2) mg/dL Lactic Acid (0.7-2.0) mmol/L Calcium (8.4-10.2) mg/dL Magnesium (1.7-2.3) mg/dL Albumin (3.9-5) g/dL Urine WBC (Auto) (0.0-6.0) /HPF Crossmatch - Imaging and Cardiology CT scan - abdomen: report reviewed, image reviewed (left adnexal mass/collection) Assessment and Plan Cultures: 10/24/2018 blood culture: In progress A/P: 28-year-old female with morbid obesity, irregular menses and prior D&C several years ago, otherwise no significant past medical history, admitted with: 1) SIRS v/s sepsis: Fever, tachycardia, lactate elevation and left adnexal mass possibly concerning for tubo-ovarian abscess / pelvic inflammatory disease. 2) Morbid obesity 3) Possible UTI v/s contaminated specimen: follow up cultures. Recs: Started Ceftriaxone, Flagyl and Doxycycline HIV screen, RPR screen ordered Discussed with RN to ensure Gonorrhea and Chlamydia NAAT sample is sent Awaiting VISUAL LEAD evaluation d/w Dr. Colindres. Rupesh Padilla MD [facility] C: [phone] O: [phone] F: [phone]
[2018-10-25] MEDS: FLAGYL 500 MG/100 ML 500 MG/100 ML BAG IV SCH ×2 (14:15→23:35)
[2018-10-25] MEDS: ROCEPHIN/NS 2 GM/100 ML 2 GM/100 ML BAG IV SCH (14:44)
[2018-10-25] MEDS: TYLENOL PO PRN (15:22)
--- NOTE | 2018-10-25 18:12 | Consultation ---
History of Present Illness - Reason for Consult Consult date: 10/25/18 - History of Present Illness This is a 28-year-old female 0 para 0 LMP of 09/19/2018 who presented to [facility] emergency department complaining of left flank pain and abdominal pain since Sunday become progressively worse. She was diagnosed with a 5.8 cm left adnexal mass consistent with tubo-ovarian abscess with surrounding inflammatory changes. Also she was noted to be severely anemic . She is a long history of irregular uterine bleeding that is consistent with polycystic ovarian syndrome. She also gives a history of anemia that was diagnosed in [facility] where she was post blood transfusion however moved to this area. She states she was placed on control pills several years ago which did control her bleeding however she stopped taking the OCPs however did not give a reason. Patient states that her last Pap smear was approximately 10 years ago however she does not give a history of abnormal cervical cancer screening test or sexually transmitted diseases Past History Past Medical History: anemia Past Surgical History: Other (D&C) Social history: no significant social history, single. denies: smoking, alcohol abuse, prescription drug abuse Family history: no significant family history Medications and Allergies Allergies Allergy/AdvReac Type Severity Reaction Status Date / Time No Known Allergies Allergy Verified 10/24/18 14:02 Home Medications Medication Instructions Recorded Confirmed Last Taken Type HYDROcodone/APAP 5-325 [[place] 1 - 2 each PO Q6HR PRN #14 tablet 10/24/18 Unknown Rx 5/325] Ibuprofen [Motrin 800 MG tab] 800 mg PO Q8HR PRN #20 tablet 10/24/18 Unknown Rx levoFLOXacin [Levaquin TAB] 500 mg PO QDAY #10 tablet 10/24/18 Unknown Rx Active Meds: Active Medications Acetaminophen (Tylenol) 650 mg PO Q6H PRN PRN Reason: Non Cardiac Pain or Temp>100.5 Last Admin: 10/25/18 15:22 Dose: 650 mg Documented by: Sodium Chloride (Nacl 0.9% 1000 Ml) 1,000 mls @ 150 mls/hr IV DIRECT IVETH Last Admin: 10/25/18 11:41 Dose: 150 mls/hr Documented by: Doxycycline Hyclate 100 mg/ (Sodium Chloride) 250 mls @ 250 mls/hr IV Q12HR IVETH; Protocol Last Admin: 10/25/18 11:40 Dose: 250 mls/hr Documented by: Ceftriaxone Sodium (Rocephin/Ns 2 Gm/100 Ml) 2 gm in 100 mls @ 200 mls/hr IV Q24HR IVETH; Protocol Last Admin: 10/25/18 14:44 Dose: 200 mls/hr Documented by: Metronidazole (Flagyl 500 Mg/100 Ml) 500 mg in 100 mls @ 100 mls/hr IV Q8HR IVETH; Protocol Last Admin: 10/25/18 14:15 Dose: 100 mls/hr Documented by: Morphine Sulfate (Morphine) 2 mg IV Q4H PRN PRN Reason: Pain, Moderate (4-6) Ondansetron HCl (Zofran) 4 mg IV Q4H PRN PRN Reason: Nausea And Vomiting Last Admin: 10/25/18 11:40 Dose: 4 mg Documented by: Sodium Chloride (Sodium Chloride Flush Syringe 10 Ml) 10 ml IV BID IEVTH Last Admin: 10/25/18 10:00 Dose: 10 ml Documented by: Sodium Chloride (Sodium Chloride Flush Syringe 10 Ml) 10 ml IV PRN PRN PRN Reason: LINE FLUSH Review of Systems All systems: negative Genitourinary Female: pelvic pain Menstruation: period heavy, cycle variable Exam - Constitutional Vitals: Temp Pulse Resp BP Pulse Ox 100.5 F H 108 H 32 H 132/76 100 10/25/18 08:00 10/25/18 18:00 10/25/18 18:00 10/25/18 18:00 10/25/18 16:00 Results - Labs CBC & Chem 7: 10/25/18 11:48 10/24/18 20:44 Labs: Abnormal lab results 10/24/18 10/24/18 10/24/18 Range/Units 20:44 20:44 20:44 RBC 3.46 L (3.65-5.03) M/mm3 Hgb 5.2 L* (10.1-14.3) gm/dl Hct 18.5 L* (30.3-42.9) % MCV 54 L (79-97) fl MCH 15 L (28-32) pg MCHC 28 L (30-34) % RDW 21.5 H (13.2-15.2) % Seg Neuts % (Manual) 82.0 H (40.0-70.0) % Lymphocytes % (Manual) 0 L (13.4-35.0) % Nucleated RBC % 2.0 H (0.0-0.9) % Seg Neutrophils # Man 8.0 H (1.8-7.7) K/mm3 Lymphocytes # (Manual) 0.0 L (1.2-5.4) K/mm3 Potassium 3.3 L (3.6-5.0) mmol/L Creatinine 0.6 L (0.7-1.2) mg/dL Lactic Acid 2.60 H* (0.7-2.0) mmol/L Calcium 8.0 L (8.4-10.2) mg/dL Magnesium (1.7-2.3) mg/dL Albumin 3.1 L (3.9-5) g/dL Crossmatch 10/24/18 10/24/18 10/25/18 Range/Units 23:00 23:00 11:48 RBC (3.65-5.03) M/mm3 Hgb 7.6 L (10.1-14.3) gm/dl Hct 25.9 L D (30.3-42.9) % MCV (79-97) fl MCH (28-32) pg MCHC (30-34) % RDW (13.2-15.2) % Seg Neuts % (Manual) (40.0-70.0) % Lymphocytes % (Manual) (13.4-35.0) % Nucleated RBC % (0.0-0.9) % Seg Neutrophils # Man (1.8-7.7) K/mm3 Lymphocytes # (Manual) (1.2-5.4) K/mm3 Potassium (3.6-5.0) mmol/L Creatinine (0.7-1.2) mg/dL Lactic Acid (0.7-2.0) mmol/L Calcium (8.4-10.2) mg/dL Magnesium 1.40 L (1.7-2.3) mg/dL Albumin (3.9-5) g/dL Crossmatch See Detail - Imaging and Cardiology CT scan - pelvis: report reviewed Assessment and Plan - Patient Problems (1) Trichomonas vaginitis Current Visit: Yes Status: Acute Plan to address problem: She was informed this is an STI and that her partner needs to be treated. No sex until 7days after she and her partner have completed treatment. Now receiving Flagyl (2) Anemia Current Visit: Yes Status: Acute Plan to address problem: S/p 2u PRBC's with appropriate increase, asymptomatic, ferrous sulfate started (3) Sepsis Current Visit: Yes Status: Acute (4) Tubo-ovarian abscess Current Visit: Yes Status: Acute Plan to address problem: Now on Ceftriaxone, doxycycline, and flagyl. Would consider CT guided drainage if she does not response to current antibiotic regimen. Will follow with you (5) Irregular uterine bleeding Current Visit: Yes Status: Acute Plan to address problem: States she skips periods then will bleed for a month with the first 5-7days being extremely heavy. The importance of following up with for her gynecologic evaluation was explained. She will probably need to be restarted on OCP's however with her BMI and severe bleeding she may require an endometrial biopsy. Bleeding is only minimal now (6) BMI 50.0-59.9, adult Current Visit: Yes Status: Acute
[2018-10-25] MEDS: FEOSOL PO SCH (23:34)
[2018-10-26] MEDS: MORPHINE IV PRN (00:03)
[2018-10-26] MEDS: TYLENOL PO PRN (00:04)
[2018-10-26] MEDS ORDERED: TYLENOL PO PRN (04:12)
[2018-10-26] MEDS: SODIUM CHLORIDE FLUSH SYRINGE 10 ML IV SCH ×2 (04:29→11:30)
[2018-10-26 05:28] LABS: Hematocrit 23.7 % (30.3-42.9); Mean Corpuscular HGB Conc 29 % (30-34); Mean Corpuscular Volume 62 fl (79-97); Platelet Count 390 K/mm3 (140-440); Red Blood Count 3.85 M/mm3 (3.65-5.03)
[2018-10-26 05:29] LABS: Basophils # (Auto) 0.1 K/mm3 (0.0-0.1); Basophils % (Auto) 0.4 % (0.0-1.8); Eosinophils % (Auto) 0.1 % (0.0-4.3); Lymphocytes # (Auto) 1.1 K/mm3 (1.2-5.4); Monocytes # (Auto) 1.3 K/mm3 (0.0-0.8); Monocytes % (Auto) 7.3 % (0.0-7.3)
[2018-10-26 05:52] LABS: BUN/Creatinine Ratio 6; Blood Urea Nitrogen 4 mg/dL (7-17); Calcium 7.7 mg/dL (8.4-10.2); Hemolysis Index 1
[2018-10-26] MEDS: FLAGYL 500 MG/100 ML 500 MG/100 ML BAG IV SCH ×3 (06:48→21:24)
[2018-10-26] MEDS ORDERED: NACL 0.9% 500 ML 500 ML IV ONE ×2 (09:02→10:00)
--- NOTE | 2018-10-26 09:04 | Progress Note ---
Assessment and Plan Assessment and plan: Patient is a 28 yo woman with a history of anemia and heavy menses who presented to [facility] ED with left flank abd pains * CT abd/pelvis without contrast IMPRESSION: 1. Abnormal soft tissue mass in the left adnexal a that likely represents an enlarged ovary with edema/inflammatory change in the adjacent fat and adjacent fascial planes with a possible small amount of free fluid in the adjacent region. Differential diagnosis includes infectious etiology (possible ovarian abscess) and noninfectious etiologies, tumor or possibly ovarian torsion. 2. Mildly prominent intra-abdominal and retroperitoneal lymph nodes and mild splenomegaly. Transvaginal ultrasound to evaluate for the presence or absence of flow in the left ovary and CT abdomen and pelvis with IV contrast for evaluation for possible ovarian abscess would be helpful for further evaluation. * CT abd/pelvis with IV contrast IMPRESSION: 1. Heterogeneously enhancing mass in the left adnexal with stranding of the adjacent fat and a small amount of fluid in the left pericolic gutter. This patient with a history of abdominal pain and sepsis this most likely represents a tubo-ovarian abscess. 2. Mild splenomegaly and mildly prominent intraperitoneal and retroperitoneal lymph nodes. 3. Small probable cyst left kidney. 4. Midline anterior abdominal wall hernia that contains fat. * US pelvis duplex complete IMPRESSION: 1. Visualization detail on the transabdominal study is limited due to patient's large body habitus. 2. Demonstration of large complex structure in the left adnexal a that likely represents the fallopian tube and ovary. A tubo-ovarian abscess needs to be considered. 3. Arterial flow is demonstrated in the left ovary utilizing Doppler waveform imaging. Sepsis due to suspected Tubo-ovarian abscess: pack master consulted, treated with IV Unasyn + oral Doxcycline, IVF==>I consulted ID and they adjusted abx, consulted IR to evaluate for drainage Acute on chronic blood loss anemia, hgb 5.2 most Menorrhagia: 2 units PRBC transfused, Acute hypoxic respiratory failure due to severe anemia, poa: pulse ox dropped to 85% on 2liters so I had to increased O2 5 liters before sat improved to 90%, Hypokalemia: repleted, recheck AM Hypomagnesemia: repleted, recheck in AM UTI with sepsis vs PID leading to Tubo-Ovarian abscess: treat as above Morbid Obese, bmi 50.2: senior counsel on lifestyle modification Still spiking fever with maxium temp of 103.1 F consulted IR to evaluate for drainage transfuse another 1 unit of PRBC Clinically, she is getting fluid overload, stopped IVF, get pCXR and give lasix 40mg iv x 1 and consult Pulmonology CCT 32 minutes History Interval history: Patient was seen and examined. Follow-up on current diagnosis of Abd pains. Overnight eventful with fevers, SOB on VM now. Patient denies any chest pain, nausea/vomiting or severe headaches. Imaging, nursing note, chart, labs and old chart reviewed. Discussed with patient. Hospitalist Physical - Physical exam Narrative exam: Gen: ill appearing, mo BMI 50.2, mild increase accessory muscles, Awake, Alert, Orientated HEENT: NCAT, EOMI, PERRL, OP Clear Neck: supple, no adenopathy, no thyromegaly, no JVD CVS/Heart: Regular tachycardia, normal S1S2, pulses present bilaterally Chest/Lungs: diminished bs, Symmetrical chest expansion, reduced air entry bilaterally GI/Abdomen: soft, +tender left flank, good bowel sounds, no guarding or rebound /Bladder: mild suprapubic tenderness,no CVA or paraspinal tenderness Extermity/Skin: no c/c/e, no obvious rash MSK: FROM x 4 Neuro: CN 2-12 grossly intact, no new focal deficits Psych: calm - Constitutional Vitals: Temp Pulse Resp BP Pulse Ox 103.1 F H 115 H 29 H 116/62 79 L 10/26/18 04:00 10/26/18 06:20 10/26/18 06:20 10/26/18 06:20 10/26/18 05:20 Results - Labs CBC & Chem 7: 10/26/18 04:58 10/26/18 04:58 Labs: Laboratory Last Values WBC 17.6 K/mm3 (4.5-11.0) H 10/26/18 04:58 RBC 3.85 M/mm3 (3.65-5.03) 10/26/18 04:58 Hgb 7.0 gm/dl (10.1-14.3) L 10/26/18 04:58 Hct 23.7 % (30.3-42.9) L 10/26/18 04:58 MCV 62 fl (79-97) L 10/26/18 04:58 MCH 18 pg (28-32) L 10/26/18 04:58 MCHC 29 % (30-34) L 10/26/18 04:58 RDW 31.0 % (13.2-15.2) H 10/26/18 04:58 Plt Count 390 K/mm3 (140-440) 10/26/18 04:58 Lymph % (Auto) 6.0 % (13.4-35.0) L 10/26/18 04:58 [place] % (Auto) 7.3 % (0.0-7.3) 10/26/18 04:58 Eos % (Auto) 0.1 % (0.0-4.3) 10/26/18 04:58 Baso % (Auto) 0.4 % (0.0-1.8) 10/26/18 04:58 Lymph # 1.1 K/mm3 (1.2-5.4) L 10/26/18 04:58 [place] # 1.3 K/mm3 (0.0-0.8) H 10/26/18 04:58 Eos # 0.0 K/mm3 (0.0-0.4) 10/26/18 04:58 Baso # 0.1 K/mm3 (0.0-0.1) 10/26/18 04:58 Add Manual Diff Complete 10/24/18 20:44 Total Counted 100 10/24/18 20:44 Seg Neutrophils % 86.2 % (40.0-70.0) H 10/26/18 04:58 Seg Neuts % (Manual) 82.0 % (40.0-70.0) H 10/24/18 20:44 Band Neutrophils % 18.0 % 10/24/18 20:44 Lymphocytes % (Manual) 0 % (13.4-35.0) L 10/24/18 20:44 Reactive Lymphs % (Man) 0 % 10/24/18 20:44 Monocytes % (Manual) 0 % (0.0-7.3) 10/24/18 20:44 Eosinophils % (Manual) 0 % (0.0-4.3) 10/24/18 20:44 Basophils % (Manual) 0 % (0.0-1.8) 10/24/18 20:44 Metamyelocytes % 0 % 10/24/18 20:44 Myelocytes % 0 % 10/24/18 20:44 Promyelocytes % 0 % 10/24/18 20:44 Blast Cells % 0 % 10/24/18 20:44 Nucleated RBC % 2.0 % (0.0-0.9) H 10/24/18 20:44 Seg Neutrophils # 15.2 K/mm3 (1.8-7.7) H 10/26/18 04:58 Seg Neutrophils # Man 8.0 K/mm3 (1.8-7.7) H 10/24/18 20:44 Band Neutrophils # 1.7 K/mm3 10/24/18 20:44 Lymphocytes # (Manual) 0.0 K/mm3 (1.2-5.4) L 10/24/18 20:44 Abs React Lymphs (Man) 0.0 K/mm3 10/24/18 20:44 Monocytes # (Manual) 0.0 K/mm3 (0.0-0.8) 10/24/18 20:44 Eosinophils # (Manual) 0.0 K/mm3 (0.0-0.4) 10/24/18 20:44 Basophils # (Manual) 0.0 K/mm3 (0.0-0.1) 10/24/18 20:44 Metamyelocytes # 0.0 K/mm3 10/24/18 20:44 Myelocytes # 0.0 K/mm3 10/24/18 20:44 Promyelocytes # 0.0 K/mm3 10/24/18 20:44 Blast Cells # 0.0 K/mm3 10/24/18 20:44 WBC Morphology Not Reportable 10/24/18 20:44 Hypersegmented Neuts Not Reportable 10/24/18 20:44 Hyposegmented Neuts Not Reportable 10/24/18 20:44 Hypogranular Neuts Not Reportable 10/24/18 20:44 Smudge Cells Not Reportable 10/24/18 20:44 Toxic Granulation Not Reportable 10/24/18 20:44 Toxic Vacuolation Not Reportable 10/24/18 20:44 Dohle Bodies Not Reportable 10/24/18 20:44 Pelger-Huet Anomaly Not Reportable 10/24/18 20:44 Babak Rods Not Reportable 10/24/18 20:44 Platelet Estimate Appears increased 10/24/18 20:44 Clumped Platelets Not Reportable 10/24/18 20:44 Plt Clumps, EDTA Not Reportable 10/24/18 20:44 Large Platelets Few 10/24/18 20:44 Giant Platelets Few 10/24/18 20:44 Platelet Satelliting Not Reportable 10/24/18 20:44 Plt Morphology Comment Not Reportable 10/24/18 20:44 RBC Morphology Not Reportable 10/24/18 20:44 Dimorphic RBCs Not Reportable 10/24/18 20:44 Polychromasia Few 10/24/18 20:44 Hypochromasia 3+ 10/24/18 20:44 Poikilocytosis Few 10/24/18 20:44 Anisocytosis 1+ 10/24/18 20:44 Microcytosis 3+ 10/24/18 20:44 Macrocytosis Not Reportable 10/24/18 20:44 Spherocytes Not Reportable 10/24/18 20:44 Pappenheimer Bodies Not Reportable 10/24/18 20:44 Sickle Cells Not Reportable 10/24/18 20:44 Target Cells Not Reportable 10/24/18 20:44 Tear Drop Cells Not Reportable 10/24/18 20:44 Ovalocytes Few 10/24/18 20:44 Helmet Cells Not Reportable 10/24/18 20:44 [place] Bodies Not Reportable 10/24/18 20:44 [place] Rings Not Reportable 10/24/18 20:44 [place] Cells Not Reportable 10/24/18 20:44 Bite Cells Not Reportable 10/24/18 20:44 Crenated Cell Not Reportable 10/24/18 20:44 Elliptocytes Not Reportable 10/24/18 20:44 Acanthocytes (Spur) Not Reportable 10/24/18 20:44 Rouleaux Not Reportable 10/24/18 20:44 Hemoglobin C Crystals Not Reportable 10/24/18 20:44 Schistocytes Not Reportable 10/24/18 20:44 Malaria parasites Not Reportable 10/24/18 20:44 Jose Enrique Bodies Not Reportable 10/24/18 20:44 Hem Pathologist Commnt No 10/24/18 20:44 APTT 27.6 Sec. (24.2-36.6) 10/24/18 20:44 Sodium 134 mmol/L (137-145) L 10/26/18 04:58 Potassium 3.6 mmol/L (3.6-5.0) 10/26/18 04:58 Chloride 101.6 mmol/L (98-107) 10/26/18 04:58 Carbon Dioxide 22 mmol/L (22-30) 10/26/18 04:58 Anion Gap 14 mmol/L 10/26/18 04:58 BUN 4 mg/dL (7-17) L 10/26/18 04:58 Creatinine 0.7 mg/dL (0.7-1.2) 10/26/18 04:58 Estimated GFR > 60 ml/min 10/26/18 04:58 BUN/Creatinine Ratio 6 % 10/26/18 04:58 Glucose 125 mg/dL (65-100) H 10/26/18 04:58 POC Glucose 121 (70-105) H 10/26/18 07:41 Lactic Acid 1.90 mmol/L (0.7-2.0) 10/25/18 04:32 Calcium 7.7 mg/dL (8.4-10.2) L 10/26/18 04:58 Magnesium 1.90 mg/dL (1.7-2.3) 10/26/18 04:58 Total Bilirubin 0.70 mg/dL (0.1-1.2) 10/24/18 20:44 AST 12 units/L (5-40) 10/24/18 20:44 ALT 8 units/L (7-56) 10/24/18 20:44 Alkaline Phosphatase 116 units/L (35-129) 10/24/18 20:44 Total Protein 6.9 g/dL (6.3-8.2) 10/24/18 20:44 Albumin 3.1 g/dL (3.9-5) L 10/24/18 20:44 Albumin/Globulin Ratio 0.8 % 10/24/18 20:44 Urine Color Red (Yellow) 10/24/18 14:20 Urine Turbidity Slightly-cloudy (Clear) 10/24/18 14:20 Urine pH 6.0 (5.0-7.0) 10/24/18 14:20 Ur Specific [place] 1.011 (1.003-1.030) 10/24/18 14:20 Urine Protein 100 mg/dl mg/dL (Negative) 10/24/18 14:20 Urine Glucose (UA) Neg mg/dL (Negative) 10/24/18 14:20 Urine Ketones 80 mg/dL (Negative) 10/24/18 14:20 Urine Blood Lg (Negative) 10/24/18 14:20 Urine Nitrite Neg (Negative) 10/24/18 14:20 Urine Bilirubin Neg (Negative) 10/24/18 14:20 Urine Urobilinogen 2.0 mg/dL (<2.0) 10/24/18 14:20 Ur Leukocyte Esterase Lg (Negative) 10/24/18 14:20 Urine WBC (Auto) 161.0 /HPF (0.0-6.0) H 10/24/18 14:20 Urine RBC (Auto) > 182.0 /HPF (0.0-6.0) 10/24/18 14:20 U Epithel Cells (Auto) 5.0 /HPF (0-13.0) 10/24/18 14:20 Urine Bacteria (Auto) 3+ /HPF (Negative) 10/24/18 14:20 Urine WBC Clumps 2+ /HPF 10/24/18 14:20 Urine Mucus 1+ /HPF 10/24/18 14:20 Urine HCG, Qual Negative (Negative) 10/24/18 14:20 HIV 1&2 Antibody Rapid Non react (Non React) 10/25/18 11:48 HIV P24 Antigen Non react (Non React) 10/25/18 11:48 Blood Type O POSITIVE 10/24/18 23:00 Antibody Screen Negative 10/24/18 23:00 Crossmatch See Detail 10/24/18 23:00
--- NOTE | 2018-10-26 09:56 | Event Note ---
Date: 10/26/18 Multiloculated left adnexal lesion on CT. Given multiloculated nature, CT guided drainage will probably not be possible. Can plan for possible CT guided aspiration on sunday based on how patient does and coverage. NPO after MN on sunday for possible aspiration sunday.
[2018-10-26] MEDS: ROCEPHIN/NS 2 GM/100 ML 2 GM/100 ML BAG IV SCH (10:08)
[2018-10-26] MEDS: DOXYCYCLINE HYCLATE 100 MG in NACL 0.9% 250ML 250 ML IV SCH ×2 (10:24→21:24)
[2018-10-26] MEDS ORDERED: LASIX IV ONE (11:06)
--- NOTE | 2018-10-26 11:34 | Event Note ---
Date: 10/26/18 Jacqui Colindres and Vinnie notes reviewed. Patient now given IV replaced. We'll continue IV antibiotics. Patient with elevated temperature this a.m. Would consider CT guided drainage if she does not response to current antibiotic regimen. Patient with minimal vaginal bleeding address her irregular menses as outpatient.
--- NOTE | 2018-10-26 12:31 | XRay Report ---
FINAL REPORT EXAM: XR CHEST 1V AP HISTORY: sob COMPARISON: None. TECHNIQUE: Single frontal view of the chest FINDINGS: The cardiomediastinal silhouette is normal in appearance. There are patchy opacities in the right lung and the left lung base. No pleural effusion or pneumotho rax. No acute bony or soft tissue abnormality. IMPRESSION: Patchy opacities in the right lung and left lung base that may reflect developing pneumonia or edema.
--- NOTE | 2018-10-26 13:17 | Consultation ---
History of Present Illness Consult date: 10/26/18 Reason for consult: dyspnea, other (hypoxemia) History of present illness: 28-year-old female with morbid obesity, irregular menses and prior D&C several years ago, otherwise no significant past medical history presented to the emergency room last night with complaints of left-sided flank pain and lower abdominal pain that apparently began last Sunday, was going on for the last 5-6 days and getting worse. He presented to ED with fever. Reportedly also with vaginal discharge for the last 3-4 weeks, diagnosed has Trichomonas by gynecolog y. She underwent a CT abdomen and pelvis which showed findings concerning for a possible tubo-ovarian abscess and infectious diseases was consulted. She was noted to be hypoxic yesterday and was transferred to the [facility] and initialized of oxygen plus Lasix. She reportedly had one single vomiting episode this morning and was also previously morphine for pain since admission A chest x-ray which was performed this morning, shows bilateral pulmonary infiltrates consistent with airspace changes, pulmonary edema. Denies smoking, recreational drugs. Reports occasional alcohol intake. Admission screening HIV was negative. Pulmonary asked to evaluate for hyperemic respiratory failure and recommend treatment. Currently she is sitting comfortably on bedside recliner, using Venturi mask at 50%. Her backside oximetry is 92% Past History Past Medical History: anemia Past Surgical History: Other (D&C) Social history: no significant social history, single. denies: smoking, alcohol abuse, prescription drug abuse Family history: no significant family history Medications and Allergies Allergies Allergy/AdvReac Type Severity Reaction Status Date / Time No Known Allergies Allergy Verified 10/24/18 14:02 Home Medications Medication Instructions Recorded Confirmed Last Taken Type HYDROcodone/APAP 5-325 [[place] 1 - 2 each PO Q6HR PRN #14 tablet 10/24/18 Unknown Rx 5/325] Ibuprofen [Motrin 800 MG tab] 800 mg PO Q8HR PRN #20 tablet 10/24/18 Unknown Rx levoFLOXacin [Levaquin TAB] 500 mg PO QDAY #10 tablet 10/24/18 Unknown Rx Active Meds: Active Medications Acetaminophen (Tylenol) 650 mg PO Q4H PRN PRN Reason: Fever > 100.5 Last Admin: 10/26/18 04:23 Dose: 650 mg Documented by: Ferrous Sulfate (Feosol) 325 mg PO TID [facility] Last Admin: 10/25/18 23:34 Dose: 325 mg Documented by: Doxycycline Hyclate 100 mg/ (Sodium Chloride) 250 mls @ 250 mls/hr IV Q12HR IVETH; Protocol Last Admin: 10/26/18 10:24 Dose: 250 mls/hr Documented by: Ceftriaxone Sodium (Rocephin/Ns 2 Gm/100 Ml) 2 gm in 100 mls @ 200 mls/hr IV Q24HR IVETH; Protocol Last Admin: 10/26/18 10:08 Dose: 200 mls/hr Documented by: Metronidazole (Flagyl 500 Mg/100 Ml) 500 mg in 100 mls @ 100 mls/hr IV Q8HR IVETH; Protocol Last Admin: 10/26/18 06:48 Dose: 100 mls/hr Documented by: Ibuprofen (Motrin) 800 mg PO Q8H PRN PRN Reason: Fever >101 Morphine Sulfate (Morphine) 2 mg IV Q4H PRN PRN Reason: Pain, Moderate (4-6) Last Admin: 10/26/18 00:03 Dose: 2 mg Documented by: Ondansetron HCl (Zofran) 4 mg IV Q4H PRN PRN Reason: Nausea And Vomiting Last Admin: 10/25/18 11:40 Dose: 4 mg Documented by: Sodium Chloride (Sodium Chloride Flush Syringe 10 Ml) 10 ml IV BID IVETH Last Admin: 10/26/18 11:30 Dose: 10 ml Documented by: Sodium Chloride (Sodium Chloride Flush Syringe 10 Ml) 10 ml IV PRN PRN PRN Reason: LINE FLUSH Review of Systems All systems: negative Constitutional: weight gain Physical Examination Vital signs: Vital Signs Temp Pulse Resp BP Pulse Ox 98.8 F 106 H 16 123/61 100 10/24/18 14:02 10/24/18 14:02 10/24/18 14:02 10/24/18 14:02 10/24/18 14:02 General appearance: no acute distress, other (morbidly obese) Eyes: non-icteric ENT: oropharynx moist, other (optometry) Ascultation: Bilateral: rales (faint, posterior basal. No wheezing or rhonchi) Cardiovascular: regular rate and rhythm Gastrointestinal: normoactive bowel sounds, tender (mild left-sided), non- distended Integumentary: normal Extremities: no cyanosis, edema (trace pretibial) Musculoskeletal: no deformities normal mental status, non-focal exam, CN II-XII normal, motor strength normal and mood appropriate, affect normal Results - Laboratory Findings CBC and BMP: 10/26/18 04:58 10/26/18 04:58 Abnormal lab findings: Abnormal Labs 10/24/18 10/24/18 10/24/18 14:20 20:44 20:44 WBC RBC 3.46 L Hgb 5.2 L* Hct 18.5 L* MCV 54 L MCH 15 L MCHC 28 L RDW 21.5 H Lymph % (Auto) Lymph # [place] # Seg Neutrophils % Seg Neuts % (Manual) 82.0 H Lymphocytes % (Manual) 0 L Nucleated RBC % 2.0 H Seg Neutrophils # Seg Neutrophils # Man 8.0 H Lymphocytes # (Manual) 0.0 L Sodium Potassium 3.3 L BUN Creatinine 0.6 L Glucose POC Glucose Lactic Acid Calcium 8.0 L Magnesium Albumin 3.1 L Urine WBC (Auto) 161.0 H Crossmatch 10/24/18 10/24/18 10/24/18 20:44 23:00 23:00 WBC RBC Hgb Hct MCV MCH MCHC RDW Lymph % (Auto) Lymph # [place] # Seg Neutrophils % Seg Neuts % (Manual) Lymphocytes % (Manual) Nucleated RBC % Seg Neutrophils # Seg Neutrophils # Man Lymphocytes # (Manual) Sodium Potassium BUN Creatinine Glucose POC Glucose Lactic Acid 2.60 H* Calcium Magnesium 1.40 L Albumin Urine WBC (Auto) Crossmatch See Detail 10/25/18 10/26/18 10/26/18 11:48 04:58 04:58 WBC 17.6 H RBC Hgb 7.6 L 7.0 L Hct 25.9 L D 23.7 L MCV 62 L MCH 18 L MCHC 29 L RDW 31.0 H Lymph % (Auto) 6.0 L Lymph # 1.1 L [place] # 1.3 H Seg Neutrophils % 86.2 H Seg Neuts % (Manual) Lymphocytes % (Manual) Nucleated RBC % Seg Neutrophils # 15.2 H Seg Neutrophils # Man Lymphocytes # (Manual) Sodium 134 L Potassium BUN 4 L Creatinine Glucose 125 H POC Glucose Lactic Acid Calcium 7.7 L Magnesium Albumin Urine WBC (Auto) Crossmatch 10/26/18 10/26/18 07:41 11:04 WBC RBC Hgb Hct MCV MCH MCHC RDW Lymph % (Auto) Lymph # [place] # Seg Neutrophils % Seg Neuts % (Manual) Lymphocytes % (Manual) Nucleated RBC % Seg Neutrophils # Seg Neutrophils # Man Lymphocytes # (Manual) Sodium Potassium BUN Creatinine Glucose POC Glucose 121 H 124 H Lactic Acid Calcium Magnesium Albumin Urine WBC (Auto) Crossmatch - Diagnostic Findings Chest x-ray: image reviewed CT scan - chest: report reviewed, image reviewed Assessment and Plan Acute hypoxemic respiratory failure episode Pulmonary edema-possibly multifactorial; - SIRS/low-grade ARDS (formerly ALI) - Vomiting with aspiration. Possibly unlikely based on history and timing - Narcotic related pulmonary edema. On morphine and oxycodone - CHF. No supportive history - doubt Pneumonia, no symptoms SIRS/sepsis Tubo-ovarian abscess Morbid obesity Recommendations: Continue antibiotics Gentle diuretics, monitor I and O status. Goal is to maintain normal MAP and renal output Agree with current oxygen support. Continue antibiotics per ID drainage per MEDICAL GENETICIST, ID recommendations Monitor cultures and adjust antibiotics accordingly Nebulized albuterol therapy if chest congestion and wheezing BMP. If elevated do echocardiogram If respiratory deterioration occurs, transfer patient to ICU and consider initiating BiPAP therapy next. However, she looks clinically better so hopefully this will not be needed Discussed findings with the patient detailed. All questions answered. Critical care time was 45 minutes of [id number] evaluation and coordination of care
[2018-10-26] MEDS: FEOSOL PO SCH ×3 (14:41→21:24)
[2018-10-26] MEDS: IBUPROFEN PO PRN ×2 (14:41→21:23)
[2018-10-26] MEDS ORDERED: ADRENALIN IV ONE (23:00)
[2018-10-26] MEDS ORDERED: ATROPINE 0.1% (CARDIAC) ONE (23:00)
[2018-10-26] MEDS ORDERED: INTROPIN DRIP 800 MG/D5W 250 ML IV ONE (23:00)
[2018-10-26] MEDS ORDERED: ADRENALIN ONE (23:00)
[2018-10-26] MEDS ORDERED: CALCIUM CHLORIDE IV ONE (23:00)
[2018-10-26] MEDS ORDERED: D50W (25GM) Syringe IV ONE (23:00)
[2018-10-27] MEDS ORDERED: NACL 0.9% 1000 ML ONE (00:24)
[2018-10-27 04:44] LABS: Hematocrit 28.4 % (30.3-42.9); Hemoglobin 8.4 gm/dl (10.1-14.3); Mean Corpuscular HGB Conc 30 % (30-34); Mean Corpuscular Volume 62 fl (79-97); Platelet Count 393 K/mm3 (140-440); Red Blood Count 4.58 M/mm3 (3.65-5.03); Red Cell Distribution Width 30.3 % (13.2-15.2)
[2018-10-27 04:46] LABS: Hematocrit 29.1 % (30.3-42.9); Hemoglobin 8.4 gm/dl (10.1-14.3)
[2018-10-27 05:06] LABS: BUN/Creatinine Ratio 10; Blood Urea Nitrogen 5 mg/dL (7-17); Calcium 8.4 mg/dL (8.4-10.2); Hemolysis Index 6
[2018-10-27] MEDS: FLAGYL 500 MG/100 ML 500 MG/100 ML BAG IV SCH ×2 (05:26→14:08)
[2018-10-27] MEDS: SODIUM CHLORIDE FLUSH SYRINGE 10 ML IV SCH ×2 (05:56→10:41)
[2018-10-27] MEDS ORDERED: LASIX ONE (08:48)
[2018-10-27] MEDS ORDERED: LASIX IV ONE ×2 (09:00→14:00)
--- NOTE | 2018-10-27 10:06 | Progress Note ---
Assessment and Plan - Patient Problems (1) Trichomonas vaginitis Current Visit: Yes Status: Acute Plan to address problem: Diagnoses explaining to the patient. Informed sexual transmitted nature of the disease and her partner needs to be treated. Patient presently on Flagyl. (2) Tubo-ovarian abscess Current Visit: Yes Status: Acute Plan to address problem: Also again explained the sexually transmitted nature of this infection. Patient is scheduled for a CT-guided aspiration in a.m. Patient currently afebrile greater than 12 hours. Antibiotics per infectious disease. Subjective Date of service: 10/27/18 ([employer] consultation) Principal diagnosis: tubo-ovarian abscess Interval history: Since yesterday the patient was diagnosed with pulmonary edema. This morning she denies any shortness of breath currently on BiPAP Objective - Constitutional Vitals: Vital Signs - 12hr 10/26/18 10/26/18 10/26/18 22:11 22:21 22:31 Temperature Pulse Rate 97 H 98 H 96 H Pulse Rate [ From Monitor] Respiratory 28 H 15 26 H Rate Blood Pressure 106/41 106/41 106/41 O2 Sat by Pulse 96 95 96 Oximetry 10/26/18 10/26/18 10/26/18 22:41 22:51 23:00 Temperature Pulse Rate 97 H 105 H 95 H Pulse Rate [ From Monitor] Respiratory 25 H 11 L 16 Rate Blood Pressure 106/41 106/41 108/51 O2 Sat by Pulse 94 86 94 Oximetry 10/26/18 10/26/18 10/26/18 23:07 23:11 23:21 Temperature Pulse Rate 99 H 96 H 96 H Pulse Rate [ From Monitor] Respiratory 12 24 25 H Rate Blood Pressure 108/51 108/51 108/51 O2 Sat by Pulse 96 98 94 Oximetry 10/26/18 10/26/18 10/26/18 23:31 23:41 23:49 Temperature 97.3 F L Pulse Rate 93 H 92 H Pulse Rate [ From Monitor] Respiratory 28 H 23 Rate Blood Pressure 108/51 108/51 O2 Sat by Pulse 95 95 Oximetry 10/26/18 10/27/18 10/27/18 23:51 00:00 00:11 Temperature Pulse Rate 92 H 90 90 Pulse Rate [ 85 From Monitor] Respiratory 23 25 H 28 H Rate Blood Pressure 108/51 98/42 98/42 O2 Sat by Pulse 99 98 97 Oximetry 10/27/18 10/27/18 10/27/18 00:21 00:31 00:41 Temperature Pulse Rate 93 H 90 88 Pulse Rate [ From Monitor] Respiratory 33 H 26 H 24 Rate Blood Pressure 98/42 98/42 98/42 O2 Sat by Pulse 98 96 98 Oximetry 10/27/18 10/27/18 10/27/18 00:50 01:00 01:11 Temperature Pulse Rate 88 88 87 Pulse Rate [ From Monitor] Respiratory 26 H 20 26 H Rate Blood Pressure 125/61 105/47 105/47 O2 Sat by Pulse 96 97 97 Oximetry 10/27/18 10/27/18 10/27/18 01:21 01:31 01:41 Temperature Pulse Rate 87 87 90 Pulse Rate [ From Monitor] Respiratory 23 27 H 25 H Rate Blood Pressure 98/42 98/42 98/42 O2 Sat by Pulse 97 98 97 Oximetry 10/27/18 10/27/18 10/27/18 01:51 02:01 02:11 Temperature Pulse Rate 97 H 104 H 108 H Pulse Rate [ From Monitor] Respiratory 33 H 27 H 28 H Rate Blood Pressure 98/42 98/42 102/59 O2 Sat by Pulse 92 90 90 Oximetry 10/27/18 10/27/18 10/27/18 02:21 02:31 02:41 Temperature Pulse Rate 96 H 98 H 97 H Pulse Rate [ From Monitor] Respiratory 20 19 14 Rate Blood Pressure 102/59 102/59 102/59 O2 Sat by Pulse 91 90 91 Oximetry 10/27/18 10/27/18 10/27/18 02:51 03:01 03:11 Temperature Pulse Rate 101 H 105 H 104 H Pulse Rate [ From Monitor] Respiratory 17 20 28 H Rate Blood Pressure 102/59 111/49 111/49 O2 Sat by Pulse 88 91 87 Oximetry 10/27/18 10/27/18 10/27/18 03:21 03:31 03:41 Temperature Pulse Rate 105 H 100 H 107 H Pulse Rate [ From Monitor] Respiratory 18 34 H 17 Rate Blood Pressure 111/49 111/49 111/49 O2 Sat by Pulse 94 91 91 Oximetry 10/27/18 10/27/18 10/27/18 03:51 04:00 04:04 Temperature 97.3 F L Pulse Rate 105 H 100 H Pulse Rate [ 98 H From Monitor] Respiratory 19 37 H Rate Blood Pressure 111/49 111/38 O2 Sat by Pulse 89 89 Oximetry 10/27/18 10/27/18 10/27/18 04:11 04:21 04:31 Temperature Pulse Rate 99 H 101 H 103 H Pulse Rate [ From Monitor] Respiratory 26 H 23 21 Rate Blood Pressure 111/38 111/38 111/38 O2 Sat by Pulse 92 93 93 Oximetry 10/27/18 10/27/18 10/27/18 04:41 04:51 05:01 Temperature Pulse Rate 96 H 99 H 124 H Pulse Rate [ From Monitor] Respiratory 30 H 29 H 32 H Rate Blood Pressure 111/38 111/38 94/64 O2 Sat by Pulse 94 94 83 L Oximetry 10/27/18 10/27/18 10/27/18 05:11 05:21 05:31 Temperature Pulse Rate 111 H 112 H 109 H Pulse Rate [ From Monitor] Respiratory 32 H 15 33 H Rate Blood Pressure 94/64 94/64 94/64 O2 Sat by Pulse 89 91 89 Oximetry 10/27/18 10/27/18 10/27/18 05:41 05:49 05:51 Temperature Pulse Rate 111 H 105 H 105 H Pulse Rate [ From Monitor] Respiratory 18 40 H 44 H Rate Blood Pressure 94/64 94/64 94/64 O2 Sat by Pulse 89 92 93 Oximetry 10/27/18 10/27/18 06:01 08:18 Temperature Pulse Rate 108 H 113 H Pulse Rate [ From Monitor] Respiratory 46 H 46 H Rate Blood Pressure 155/83 125/64 O2 Sat by Pulse 92 84 Oximetry General appearance: Present: no acute distress - Respiratory Respiratory effort: other (on BiPAP) - Breasts Breasts: deferred - Cardiovascular Rhythm: regular - Gastrointestinal General gastrointestinal: Present: soft - Genitourinary Female genitourinary: deferred - Integumentary Integumentary: clear, warm, dry - Labs CBC & Chem 7: 10/27/18 04:23 10/27/18 04:23 Labs: Abnormal lab results 10/24/18 10/26/18 10/27/18 Range/Units 23:00 11:04 03:28 WBC (4.5-11.0) K/mm3 Hgb (10.1-14.3) gm/dl Hct (30.3-42.9) % MCV (79-97) fl MCH (28-32) pg RDW (13.2-15.2) % POC ABG pO2 69 L (80-105) Potassium (3.6-5.0) mmol/L BUN (7-17) mg/dL Creatinine (0.7-1.2) mg/dL Glucose (65-100) mg/dL POC Glucose 124 H (70-105) Crossmatch See Detail 10/27/18 10/27/18 10/27/18 Range/Units 04:23 04:23 04:23 WBC 20.9 H (4.5-11.0) K/mm3 Hgb 8.4 L 8.4 L (10.1-14.3) gm/dl Hct 28.4 L 29.1 L (30.3-42.9) % MCV 62 L (79-97) fl MCH 18 L (28-32) pg RDW 30.3 H (13.2-15.2) % POC ABG pO2 (80-105) Potassium 3.4 L (3.6-5.0) mmol/L BUN 5 L (7-17) mg/dL Creatinine 0.5 L (0.7-1.2) mg/dL Glucose 109 H (65-100) mg/dL POC Glucose (70-105) Crossmatch Medications & Allergies - Medications Allergies/Adverse Reactions: Allergies No Known Allergies Allergy (Verified 10/24/18 14:02) Home Medications: Home Medications Medication Instructions Recorded Confirmed Last Taken Type HYDROcodone/APAP 5-325 [[place] 1 - 2 each PO Q6HR PRN #14 tablet 10/24/18 Unknown Rx 5/325] Ibuprofen [Motrin 800 MG tab] 800 mg PO Q8HR PRN #20 tablet 10/24/18 Unknown Rx levoFLOXacin [Levaquin TAB] 500 mg PO QDAY #10 tablet 10/24/18 Unknown Rx Active Medications: Generic Name Dose Route Start Last Admin Trade Name Freq PRN Reason Stop Dose Admin Acetaminophen 650 mg 10/26/18 04:12 10/26/18 04:23 Tylenol PO 650 mg Q4H PRN Administration Fever > 100.5 Ferrous Sulfate 325 mg 10/25/18 20:00 10/26/18 21:24 Feosol PO 325 mg TID IVETH Administration Doxycycline Hyclate 100 mg/ 250 mls @ 250 mls/hr 10/25/18 11:00 10/26/18 21:24 Sodium Chloride IV 250 mls/hr Q12HR IVETH Administration Protocol Ceftriaxone Sodium 2 gm in 100 mls @ 200 mls/hr 10/25/18 12:00 10/26/18 10:08 Rocephin/Ns 2 Gm/100 Ml IV 200 mls/hr Q24HR IVETH Administration Protocol Metronidazole 500 mg in 100 mls @ 100 mls/hr 10/25/18 14:00 10/27/18 05:26 Flagyl 500 Mg/100 Ml IV 100 mls/hr Q8HR IVETH Administration Protocol Ibuprofen 800 mg 10/26/18 09:01 10/26/18 21:23 Motrin PO 800 mg Q8H PRN Administration Fever >101 Morphine Sulfate 2 mg 10/25/18 01:16 10/26/18 00:03 Morphine IV 2 mg Q4H PRN Administration Pain, Moderate (4-6) Ondansetron HCl 4 mg 10/25/18 11:00 10/25/18 11:40 Zofran IV 4 mg Q4H PRN Administration Nausea And Vomiting Sodium Chloride 10 ml 10/25/18 10:00 10/27/18 05:56 Sodium Chloride Flush Syringe 10 Ml IV Not Given BID IVETH Sodium Chloride 10 ml 10/25/18 01:16 Sodium Chloride Flush Syringe 10 Ml IV PRN PRN LINE FLUSH
[2018-10-27] MEDS: MORPHINE IV PRN (10:40)
[2018-10-27] MEDS: ROCEPHIN/NS 2 GM/100 ML 2 GM/100 ML BAG IV SCH (10:41)
[2018-10-27] MEDS: FEOSOL PO SCH ×2 (10:44→14:08)
[2018-10-27] MEDS: DOXYCYCLINE HYCLATE 100 MG in NACL 0.9% 250ML 250 ML IV SCH (10:44)
[2018-10-27] MEDS ORDERED: K-DUR PO ONE (12:41)
[2018-10-27] MEDS ORDERED: ROBITUSSIN AC PO PRN (13:50)
[2018-10-27] MEDS ORDERED: TESSALON PERLES PO SCH (14:00)
--- NOTE | 2018-10-27 14:32 | Progress Note ---
Assessment and Plan Assessment and plan: Patient is a 28 yo woman with a history of anemia and heavy menses who presented to [facility] ED with left flank abd pains * CT abd/pelvis without contrast IMPRESSION: 1. Abnormal soft tissue mass in the left adnexal a that likely represents an enlarged ovary with edema/inflammatory change in the adjacent fat and adjacent fascial planes with a possible small amount of free fluid in the adjacent region. Differential diagnosis includes infectious etiology (possible ovarian abscess) and noninfectious etiologies, tumor or possibly ovarian torsion. 2. Mildly prominent intra-abdominal and retroperitoneal lymph nodes and mild splenomegaly. Transvaginal ultrasound to evaluate for the presence or absence of flow in the left ovary and CT abdomen and pelvis with IV contrast for evaluation for possible ovarian abscess would be helpful for further evaluation. * CT abd/pelvis with IV contrast IMPRESSION: 1. Heterogeneously enhancing mass in the left adnexal with stranding of the adjacent fat and a small amount of fluid in the left pericolic gutter. This patient with a history of abdominal pain and sepsis this most likely represents a tubo-ovarian abscess. 2. Mild splenomegaly and mildly prominent intraperitoneal and retroperitoneal lymph nodes. 3. Small probable cyst left kidney. 4. Midline anterior abdominal wall hernia that contains fat. * US pelvis duplex complete IMPRESSION: 1. Visualization detail on the transabdominal study is limited due to patient's large body habitus. 2. Demonstration of large complex structure in the left adnexal a that likely represents the fallopian tube and ovary. A tubo-ovarian abscess needs to be considered. 3. Arterial flow is demonstrated in the left ovary utilizing Doppler waveform imaging. Sepsis due to suspected Tubo-ovarian abscess: carbon grinder consulted, treated with IV Unasyn + oral Doxcycline, IVF==>I consulted ID and they adjusted abx, consulted IR to evaluate for drainage Acute on chronic blood loss anemia, hgb 5.2 most Menorrhagia: 2 units PRBC transfused, Acute hypoxic respiratory failure due to pulmonary edema, ARDS and severe anemia, poa: Intubating now per Dr. Carballo Pulmonary edema, given lasix 40mg iv x 1 yesterday, stopped fluids, ordered xray which confirmed the diagnosis and she was seen by Business Support Liaison Dr. Carballo yesterday Hypokalemia: repleted, recheck AM Hypomagnesemia: repleted, recheck in AM UTI with sepsis vs PID leading to Tubo-Ovarian abscess: treat as above Morbid Obese, bmi 50.2: cruise counselor on lifestyle modification [place] diagnosis by records assistant, Dr. James, this is interesting considering s he is in Lesbian relationship: on abx full code I gave her another dose of lasix 40mg iv x 1 this morning and will give another dose later. I asked the nurse to get ABGs and call Dr. Carballo She needs ECHO, CTA chest once stabilized. She was scheduled for CT guided aspiration of TOA on Sunday CCT 40 minutes History Interval history: Patient was seen and examined. Follow-up on current diagnosis of Abd pains. Overnight eventful with fevers, SOB on Bipap now. Patient denies any chest pain, nausea/vomiting or severe headaches. Imaging, nursing note, chart, labs and old chart reviewed. Discussed with patient. Hospitalist Physical - Physical exam Narrative exam: Gen: ill appearing, mo BMI 50.2, moderated increase accessory muscles, Awake, Alert, Orientated HEENT: NCAT, EOMI, PERRL, OP Clear Neck: supple, no adenopathy, no thyromegaly, + JVD CVS/Heart: Regular tachycardia, normal S1S2, pulses present bilaterally Chest/Lungs: diminished bs, wet crackles at bases, Symmetrical chest expansion, reduced air entry bilaterally GI/Abdomen: soft, +tender left flank, good bowel sounds, no guarding or rebound /Bladder: mild suprapubic tenderness,no CVA or paraspinal tenderness Extermity/Skin: ble pitting edema, no obvious rash MSK: FROM x 4 Neuro: CN 2-12 grossly intact, no new focal deficits Psych: calm - Constitutional Vitals: Temp Pulse Resp BP Pulse Ox 99.8 F H 137 H 18 90/55 90 10/27/18 12:00 10/27/18 13:51 10/27/18 13:51 10/27/18 13:51 10/27/18 13:51 General appearance: Present: no acute distress Results - Labs CBC & Chem 7: 10/27/18 04:23 10/27/18 04:23 Labs: Laboratory Last Values WBC 20.9 K/mm3 (4.5-11.0) H 10/27/18 04:23 RBC 4.58 M/mm3 (3.65-5.03) 10/27/18 04:23 Hgb 8.4 gm/dl (10.1-14.3) L 10/27/18 04:23 Hct 29.1 % (30.3-42.9) L 10/27/18 04:23 MCV 62 fl (79-97) L 10/27/18 04:23 MCH 18 pg (28-32) L 10/27/18 04:23 MCHC 30 % (30-34) 10/27/18 04:23 RDW 30.3 % (13.2-15.2) H 10/27/18 04:23 Plt Count 393 K/mm3 (140-440) 10/27/18 04:23 Lymph % (Auto) 6.0 % (13.4-35.0) L 10/26/18 04:58 [place] % (Auto) 7.3 % (0.0-7.3) 10/26/18 04:58 Eos % (Auto) 0.1 % (0.0-4.3) 10/26/18 04:58 Baso % (Auto) 0.4 % (0.0-1.8) 10/26/18 04:58 Lymph # 1.1 K/mm3 (1.2-5.4) L 10/26/18 04:58 [place] # 1.3 K/mm3 (0.0-0.8) H 10/26/18 04:58 Eos # 0.0 K/mm3 (0.0-0.4) 10/26/18 04:58 Baso # 0.1 K/mm3 (0.0-0.1) 10/26/18 04:58 Add Manual Diff Complete 10/24/18 20:44 Total Counted 100 10/24/18 20:44 Seg Neutrophils % 86.2 % (40.0-70.0) H 10/26/18 04:58 Seg Neuts % (Manual) 82.0 % (40.0-70.0) H 10/24/18 20:44 Band Neutrophils % 18.0 % 10/24/18 20:44 Lymphocytes % (Manual) 0 % (13.4-35.0) L 10/24/18 20:44 Reactive Lymphs % (Man) 0 % 10/24/18 20:44 Monocytes % (Manual) 0 % (0.0-7.3) 10/24/18 20:44 Eosinophils % (Manual) 0 % (0.0-4.3) 10/24/18 20:44 Basophils % (Manual) 0 % (0.0-1.8) 10/24/18 20:44 Metamyelocytes % 0 % 10/24/18 20:44 Myelocytes % 0 % 10/24/18 20:44 Promyelocytes % 0 % 10/24/18 20:44 Blast Cells % 0 % 10/24/18 20:44 Nucleated RBC % 2.0 % (0.0-0.9) H 10/24/18 20:44 Seg Neutrophils # 15.2 K/mm3 (1.8-7.7) H 10/26/18 04:58 Seg Neutrophils # Man 8.0 K/mm3 (1.8-7.7) H 10/24/18 20:44 Band Neutrophils # 1.7 K/mm3 10/24/18 20:44 Lymphocytes # (Manual) 0.0 K/mm3 (1.2-5.4) L 10/24/18 20:44 Abs React Lymphs (Man) 0.0 K/mm3 10/24/18 20:44 Monocytes # (Manual) 0.0 K/mm3 (0.0-0.8) 10/24/18 20:44 Eosinophils # (Manual) 0.0 K/mm3 (0.0-0.4) 10/24/18 20:44 Basophils # (Manual) 0.0 K/mm3 (0.0-0.1) 10/24/18 20:44 Metamyelocytes # 0.0 K/mm3 10/24/18 20:44 Myelocytes # 0.0 K/mm3 10/24/18 20:44 Promyelocytes # 0.0 K/mm3 10/24/18 20:44 Blast Cells # 0.0 K/mm3 10/24/18 20:44 WBC Morphology Not Reportable 10/24/18 20:44 Hypersegmented Neuts Not Reportable 10/24/18 20:44 Hyposegmented Neuts Not Reportable 10/24/18 20:44 Hypogranular Neuts Not Reportable 10/24/18 20:44 Smudge Cells Not Reportable 10/24/18 20:44 Toxic Granulation Not Reportable 10/24/18 20:44 Toxic Vacuolation Not Reportable 10/24/18 20:44 Dohle Bodies Not Reportable 10/24/18 20:44 Pelger-Huet Anomaly Not Reportable 10/24/18 20:44 Babak Rods Not Reportable 10/24/18 20:44 Platelet Estimate Appears increased 10/24/18 20:44 Clumped Platelets Not Reportable 10/24/18 20:44 Plt Clumps, EDTA Not Reportable 10/24/18 20:44 Large Platelets Few 10/24/18 20:44 Giant Platelets Few 10/24/18 20:44 Platelet Satelliting Not Reportable 10/24/18 20:44 Plt Morphology Comment Not Reportable 10/24/18 20:44 RBC Morphology Not Reportable 10/24/18 20:44 Dimorphic RBCs Not Reportable 10/24/18 20:44 Polychromasia Few 10/24/18 20:44 Hypochromasia 3+ 10/24/18 20:44 Poikilocytosis Few 10/24/18 20:44 Anisocytosis 1+ 10/24/18 20:44 Microcytosis 3+ 10/24/18 20:44 Macrocytosis Not Reportable 10/24/18 20:44 Spherocytes Not Reportable 10/24/18 20:44 Pappenheimer Bodies Not Reportable 10/24/18 20:44 Sickle Cells Not Reportable 10/24/18 20:44 Target Cells Not Reportable 10/24/18 20:44 Tear Drop Cells Not Reportable 10/24/18 20:44 Ovalocytes Few 10/24/18 20:44 Helmet Cells Not Reportable 10/24/18 20:44 [place] Bodies Not Reportable 10/24/18 20:44 [place] Rings Not Reportable 10/24/18 20:44 North Cells Not Reportable 10/24/18 20:44 Bite Cells Not Reportable 10/24/18 20:44 Crenated Cell Not Reportable 10/24/18 20:44 Elliptocytes Not Reportable 10/24/18 20:44 Acanthocytes (Spur) Not Reportable 10/24/18 20:44 Rouleaux Not Reportable 10/24/18 20:44 Hemoglobin C Crystals Not Reportable 10/24/18 20:44 Schistocytes Not Reportable 10/24/18 20:44 Malaria parasites Not Reportable 10/24/18 20:44 Jose Enrique Bodies Not Reportable 10/24/18 20:44 Hem Pathologist Commnt No 10/24/18 20:44 APTT 27.6 Sec. (24.2-36.6) 10/24/18 20:44 POC ABG pH 7.407 (7.35-7.45) 10/27/18 03:28 POC ABG pCO2 40.5 (35-45) 10/27/18 03:28 POC ABG pO2 69 (80-105) L 10/27/18 03:28 POC ABG HCO3 25.5 10/27/18 03:28 POC ABG Total CO2 27 10/27/18 03:28 POC ABG O2 Sat 94 10/27/18 03:28 POC ABG Base Excess 1 10/27/18 03:28 FiO2 100 % 10/27/18 03:28 Sodium 139 mmol/L (137-145) 10/27/18 04:23 Potassium 3.4 mmol/L (3.6-5.0) L 10/27/18 04:23 Chloride 101.7 mmol/L (98-107) 10/27/18 04:23 Carbon Dioxide 27 mmol/L (22-30) 10/27/18 04:23 Anion Gap 14 mmol/L 10/27/18 04:23 BUN 5 mg/dL (7-17) L 10/27/18 04:23 Creatinine 0.5 mg/dL (0.7-1.2) L 10/27/18 04:23 Estimated GFR > 60 ml/min 10/27/18 04:23 BUN/Creatinine Ratio 10 % 10/27/18 04:23 Glucose 109 mg/dL (65-100) H 10/27/18 04:23 POC Glucose 124 (70-105) H 10/26/18 11:04 Lactic Acid 1.90 mmol/L (0.7-2.0) 10/25/18 04:32 Calcium 8.4 mg/dL (8.4-10.2) 10/27/18 04:23 Magnesium 1.90 mg/dL (1.7-2.3) 10/26/18 04:58 Total Bilirubin 0.70 mg/dL (0.1-1.2) 10/24/18 20:44 AST 12 units/L (5-40) 10/24/18 20:44 ALT 8 units/L (7-56) 10/24/18 20:44 Alkaline Phosphatase 116 units/L (35-129) 10/24/18 20:44 NT-Pro-B Natriuret Pep 231.2 pg/mL (0-450) 10/26/18 16:02 Total Protein 6.9 g/dL (6.3-8.2) 10/24/18 20:44 Albumin 3.1 g/dL (3.9-5) L 10/24/18 20:44 Albumin/Globulin Ratio 0.8 % 10/24/18 20:44 Urine Color Red (Yellow) 10/24/18 14:20 Urine Turbidity Slightly-cloudy (Clear) 10/24/18 14:20 Urine pH 6.0 (5.0-7.0) 10/24/18 14:20 Ur Specific [place] 1.011 (1.003-1.030) 10/24/18 14:20 Urine Protein 100 mg/dl mg/dL (Negative) 10/24/18 14:20 Urine Glucose (UA) Neg mg/dL (Negative) 10/24/18 14:20 Urine Ketones 80 mg/dL (Negative) 10/24/18 14:20 Urine Blood Lg (Negative) 10/24/18 14:20 Urine Nitrite Neg (Negative) 10/24/18 14:20 Urine Bilirubin Neg (Negative) 10/24/18 14:20 Urine Urobilinogen 2.0 mg/dL (<2.0) 10/24/18 14:20 Ur Leukocyte Esterase Lg (Negative) 10/24/18 14:20 Urine WBC (Auto) 161.0 /HPF (0.0-6.0) H 10/24/18 14:20 Urine RBC (Auto) > 182.0 /HPF (0.0-6.0) 10/24/18 14:20 U Epithel Cells (Auto) 5.0 /HPF (0-13.0) 10/24/18 14:20 Urine Bacteria (Auto) 3+ /HPF (Negative) 10/24/18 14:20 Urine WBC Clumps 2+ /HPF 10/24/18 14:20 Urine Mucus 1+ /HPF 10/24/18 14:20 Urine HCG, Qual Negative (Negative) 10/24/18 14:20 RPR Nonreactive (Nonreactive) 10/25/18 11:48 HIV 1&2 Antibody Rapid Non react (Non React) 10/25/18 11:48 HIV P24 Antigen Non react (Non React) 10/25/18 11:48 Blood Type O POSITIVE 10/24/18 23:00 Antibody Screen Negative 10/24/18 23:00 Crossmatch See Detail 10/24/18 23:00 Nutrition/Malnutrition Assess - Dietary Evaluation Nutrition/Malnutrition Findings: Nutrition Notes Start: 10/26/18 15:39 Freq: Status: Active Protocol: Document 10/26/18 15:39 RM (Rec: 10/26/18 15:39 RM [id number]) Nutrition Notes Need for Assessment generated from: water server Initial or Follow up Brief Note Subjective/Other Information Screened for skin risk. Derik 23 points. Nutrition Intervention Revisit per MD consult or patient Sign Off request:
[2018-10-27] MEDS ORDERED: QUELICIN ONE (14:45)
[2018-10-27] MEDS ORDERED: AMIDATE IV ONE ×3 (14:45→15:44)
[2018-10-27] MEDS ORDERED: MORPHINE ONE (14:55)
[2018-10-27] MEDS ORDERED: DIPRIVAN 10 MG/ML 1,000 MG/100 ML BOTTLE IV ONE (14:59)
--- NOTE | 2018-10-27 15:00 | Progress Note ---
Subjective Date of service: 10/27/18 Principal diagnosis: tubo-ovarian abscess Interval history: Called to intubate pt. Dr. Carballo and RT and Dr. Colindres present. Morbidly obese pt in respiratory failure. On BiPap and sats in 60s-70s. Meds: Etomidate 20mg and Nubia 100mg DL X 1 with MAC 4. DVC 8.0 OETT 22cm @ teeth +CO2 and BBS and SpO2 increasing to 80s As soon as I intubated her, florid pulmonary edema was present in the ETT Objective - Constitutional Vitals: Vital Signs - 12hr 10/27/18 10/27/18 10/27/18 03:01 03:11 03:21 Temperature Pulse Rate 105 H 104 H 105 H Pulse Rate [ From Monitor] Respiratory 20 28 H 18 Rate Blood Pressure 111/49 111/49 111/49 O2 Sat by Pulse 91 87 94 Oximetry 10/27/18 10/27/18 10/27/18 03:31 03:41 03:51 Temperature Pulse Rate 100 H 107 H 105 H Pulse Rate [ From Monitor] Respiratory 34 H 17 19 Rate Blood Pressure 111/49 111/49 111/49 O2 Sat by Pulse 91 91 89 Oximetry 10/27/18 10/27/18 10/27/18 04:00 04:04 04:11 Temperature 97.3 F L Pulse Rate 100 H 99 H Pulse Rate [ 98 H From Monitor] Respiratory 37 H 26 H Rate Blood Pressure 111/38 111/38 O2 Sat by Pulse 89 92 Oximetry 10/27/18 10/27/18 10/27/18 04:21 04:31 04:41 Temperature Pulse Rate 101 H 103 H 96 H Pulse Rate [ From Monitor] Respiratory 23 21 30 H Rate Blood Pressure 111/38 111/38 111/38 O2 Sat by Pulse 93 93 94 Oximetry 10/27/18 10/27/18 10/27/18 04:51 05:01 05:11 Temperature Pulse Rate 99 H 124 H 111 H Pulse Rate [ From Monitor] Respiratory 29 H 32 H 32 H Rate Blood Pressure 111/38 94/64 94/64 O2 Sat by Pulse 94 83 L 89 Oximetry 10/27/18 10/27/18 10/27/18 05:21 05:31 05:41 Temperature Pulse Rate 112 H 109 H 111 H Pulse Rate [ From Monitor] Respiratory 15 33 H 18 Rate Blood Pressure 94/64 94/64 94/64 O2 Sat by Pulse 91 89 89 Oximetry 10/27/18 10/27/18 10/27/18 05:49 05:51 06:01 Temperature Pulse Rate 105 H 105 H 108 H Pulse Rate [ From Monitor] Respiratory 40 H 44 H 46 H Rate Blood Pressure 94/64 94/64 155/83 O2 Sat by Pulse 92 93 92 Oximetry 10/27/18 10/27/18 10/27/18 06:11 06:21 06:31 Temperature Pulse Rate 106 H 107 H 109 H Pulse Rate [ From Monitor] Respiratory 31 H 35 H 16 Rate Blood Pressure 155/83 155/83 155/83 O2 Sat by Pulse 91 89 91 Oximetry 10/27/18 10/27/18 10/27/18 06:41 06:51 07:00 Temperature Pulse Rate 113 H 107 H 112 H Pulse Rate [ From Monitor] Respiratory 32 H 19 47 H Rate Blood Pressure 155/83 155/83 135/74 O2 Sat by Pulse 87 92 87 Oximetry 10/27/18 10/27/18 10/27/18 07:11 07:21 07:31 Temperature Pulse Rate 115 H 116 H 117 H Pulse Rate [ From Monitor] Respiratory 30 H 33 H 34 H Rate Blood Pressure 135/74 135/74 155/83 O2 Sat by Pulse 88 86 88 Oximetry 10/27/18 10/27/18 10/27/18 07:41 07:51 08:00 Temperature 99.1 F Pulse Rate 111 H 114 H 116 H Pulse Rate [ 126 H From Monitor] Respiratory 44 H 20 25 H Rate Blood Pressure 155/83 155/83 125/64 O2 Sat by Pulse 88 88 88 Oximetry 10/27/18 10/27/18 10/27/18 08:11 08:18 08:21 Temperature Pulse Rate 114 H 113 H 113 H Pulse Rate [ From Monitor] Respiratory 45 H 46 H 48 H Rate Blood Pressure 125/64 125/64 125/64 O2 Sat by Pulse 87 84 84 Oximetry 10/27/18 10/27/18 10/27/18 08:31 08:41 08:51 Temperature Pulse Rate 126 H 123 H 113 H Pulse Rate [ From Monitor] Respiratory 26 H 23 46 H Rate Blood Pressure 125/64 125/64 125/64 O2 Sat by Pulse 80 L 84 93 Oximetry 0210/27/18 10/27/18 09:01 09:10 09:21 Temperature Pulse Rate 108 H 112 H 103 H Pulse Rate [ From Monitor] Respiratory 41 H 24 35 H Rate Blood Pressure 125/64 95/37 99/39 O2 Sat by Pulse 92 91 90 Oximetry 10/27/18 10/27/18 10/27/18 09:31 09:41 09:51 Temperature Pulse Rate 106 H 110 H 110 H Pulse Rate [ From Monitor] Respiratory 21 15 12 Rate Blood Pressure 125/64 125/64 125/64 O2 Sat by Pulse 92 90 91 Oximetry 10/27/18 10/27/18 10/27/18 10:00 10:11 10:21 Temperature Pulse Rate 110 H 116 H 114 H Pulse Rate [ From Monitor] Respiratory 28 H 49 H 29 H Rate Blood Pressure 109/46 109/46 109/46 O2 Sat by Pulse 83 L 80 L 77 L Oximetry 10/27/18 10/27/18 10/27/18 10:31 10:41 10:51 Temperature Pulse Rate 115 H 119 H 122 H Pulse Rate [ From Monitor] Respiratory 11 L 12 19 Rate Blood Pressure 109/46 109/46 109/46 O2 Sat by Pulse 76 L 73 L Oximetry 10/27/18 10/27/18 10/27/18 11:01 11:11 11:21 Temperature Pulse Rate 118 H 121 H 120 H Pulse Rate [ From Monitor] Respiratory 19 15 39 H Rate Blood Pressure 109/46 134/66 134/66 O2 Sat by Pulse 71 L 81 L 64 L Oximetry 10/27/18 10/27/18 10/27/18 11:31 11:41 11:51 Temperature Pulse Rate 125 H 119 H 128 H Pulse Rate [ From Monitor] Respiratory 42 H 41 H 35 H Rate Blood Pressure 134/66 134/66 134/66 O2 Sat by Pulse 93 94 96 Oximetry 10/27/18 10/27/18 10/27/18 12:00 12:01 12:10 Temperature 99.8 F H Pulse Rate 120 H 121 H Pulse Rate [ 139 H From Monitor] Respiratory 36 H 43 H 40 H Rate Blood Pressure 134/66 134/66 O2 Sat by Pulse 96 98 97 Oximetry 10/27/18 10/27/18 10/27/18 12:21 12:31 12:41 Temperature Pulse Rate 124 H 126 H 127 H Pulse Rate [ From Monitor] Respiratory 20 40 H 29 H Rate Blood Pressure 134/66 134/66 134/66 O2 Sat by Pulse 94 96 92 Oximetry 10/27/18 10/27/18 10/27/18 12:51 13:01 13:11 Temperature Pulse Rate 127 H 130 H 134 H Pulse Rate [ From Monitor] Respiratory 40 H 26 H 51 H Rate Blood Pressure 90/55 133/71 90/55 O2 Sat by Pulse 94 92 94 Oximetry 10/27/18 10/27/18 10/27/18 13:21 13:31 13:41 Temperature Pulse Rate 131 H 140 H 134 H Pulse Rate [ From Monitor] Respiratory 39 H 26 H 49 H Rate Blood Pressure 90/55 90/55 90/55 O2 Sat by Pulse 91 86 93 Oximetry 10/27/18 13:51 Temperature Pulse Rate 137 H Pulse Rate [ From Monitor] Respiratory 18 Rate Blood Pressure 90/55 O2 Sat by Pulse 90 Oximetry - Labs CBC & Chem 7: 10/27/18 04:23 10/27/18 04:23 Labs: Abnormal lab results 10/24/18 10/27/18 10/27/18 Range/Units 23:00 03:28 04:23 WBC 20.9 H (4.5-11.0) K/mm3 Hgb 8.4 L (10.1-14.3) gm/dl Hct 28.4 L (30.3-42.9) % MCV 62 L (79-97) fl MCH 18 L (28-32) pg RDW 30.3 H (13.2-15.2) % POC ABG pO2 69 L (80-105) Potassium (3.6-5.0) mmol/L BUN (7-17) mg/dL Creatinine (0.7-1.2) mg/dL Glucose (65-100) mg/dL Crossmatch See Detail 10/27/18 10/27/18 Range/Units 04:23 04:23 WBC (4.5-11.0) K/mm3 Hgb 8.4 L (10.1-14.3) gm/dl Hct 29.1 L (30.3-42.9) % MCV (79-97) fl MCH (28-32) pg RDW (13.2-15.2) % POC ABG pO2 (80-105) Potassium 3.4 L (3.6-5.0) mmol/L BUN 5 L (7-17) mg/dL Creatinine 0.5 L (0.7-1.2) mg/dL Glucose 109 H (65-100) mg/dL Crossmatch
[2018-10-27] MEDS ORDERED: QUELICIN IV ONE (15:37)
--- NOTE | 2018-10-27 15:40 | Progress Note ---
Assessment and Plan Worsening of hypoxemic respiratory failure episode. Worsening is consistent with progression of ARDS. Of note, the patient had vomiting episodes earlier this morning according to the although aspiration that looked like frothy sputum on her opinion Pulmonary edema-possibly multifactorial; - SIRS/ARDS - Vomiting with aspiration. Possibly unlikely based on history and timing - Narcotic related pulmonary edema. On morphine and oxycodone - CHF. No supportive history - doubt Pneumonia, no symptoms SIRS/sepsis Tubo-ovarian abscess Morbid obesity Recommendations: I discussed with the situation with the patient and her mother and also with the hospitalist Dr. Gamble and the ICU team; Anesthesia was called (see intubation note) anticipating possible difficult airway. RSI was performed successfully without complications by anesthesia. Abundant frothy sputum, almost hemoptoic looking noted after intubation She was transferred to the ICU and initiated on propofol Postintubation chest x-rays were reviewed by me. In the target to keep his at T4 level in the airway, bilateral dense groundglass infiltrates consistent with bilateral pulmonary edema noted f/u hospital ventilator bundle, Mechanical ventilation support, adjust FiO2 with goal of maintaining oximetry at or above 92% initial PEEP setting was 10 and will adjust as needed PIP of 40 Titrate PEEP up to maintain oximetry of the above oximetry level Set tidal Volume set initially at 6-8 cm PBW for TYLOR protection, once stabilized further Keep PIP < 30 Sedation as needed for patient comfort, adjust to RASS -1 to - 3 Maintain extubation precautions Daily morning sedation vacation and initiate SBT if deemed appropriate DVT prophylaxis PPI prophylaxis Prognosis grave in the setting of ARDS secondary to intra-abdominal infection. Patient would need drainage in order to control this process. Continue antibiotics per ID drainage per [place], ID recommendations Monitor cultures and adjust antibiotics accordingly Nebulized albuterol therapy if chest congestion and wheezing BNP with mildly elevated. Would do an echocardiogram when possible Discussed findings with the patient detailed. All questions answered. Critical care time was 70 minutes of [id number] evaluation and coordination of care Subjective Date of service: 10/27/18 Principal diagnosis: tubo-ovarian abscess Interval history: Chart breath with cough, some frothy sputum failure and increased respiratory distress. BiPAP initiated before my arrival 20/10 cm H2O 100%. Bedside oximetry is 85-87%. Family at the bedside Objective Vital Signs - 12hr 10/27/18 10/27/18 10/27/18 03:41 03:51 04:00 Temperature Pulse Rate 107 H 105 H 100 H Pulse Rate [ 98 H From Monitor] Respiratory 17 19 37 H Rate Blood Pressure 111/49 111/49 111/38 O2 Sat by Pulse 91 89 89 Oximetry 10/27/18 10/27/18 10/27/18 04:04 04:11 04:21 Temperature 97.3 F L Pulse Rate 99 H 101 H Pulse Rate [ From Monitor] Respiratory 26 H 23 Rate Blood Pressure 111/38 111/38 O2 Sat by Pulse 92 93 Oximetry 10/27/18 10/27/18 10/27/18 04:31 04:41 04:51 Temperature Pulse Rate 103 H 96 H 99 H Pulse Rate [ From Monitor] Respiratory 21 30 H 29 H Rate Blood Pressure 111/38 111/38 111/38 O2 Sat by Pulse 93 94 94 Oximetry 10/27/18 10/27/18 10/27/18 05:01 05:11 05:21 Temperature Pulse Rate 124 H 111 H 112 H Pulse Rate [ From Monitor] Respiratory 32 H 32 H 15 Rate Blood Pressure 94/64 94/64 94/64 O2 Sat by Pulse 83 L 89 91 Oximetry 10/27/18 10/27/18 10/27/18 05:31 05:41 05:49 Temperature Pulse Rate 109 H 111 H 105 H Pulse Rate [ From Monitor] Respiratory 33 H 18 40 H Rate Blood Pressure 94/64 94/64 94/64 O2 Sat by Pulse 89 89 92 Oximetry 10/27/18 10/27/18 10/27/18 05:51 06:01 06:11 Temperature Pulse Rate 105 H 108 H 106 H Pulse Rate [ From Monitor] Respiratory 44 H 46 H 31 H Rate Blood Pressure 94/64 155/83 155/83 O2 Sat by Pulse 93 92 91 Oximetry 10/27/18 10/27/18 10/27/18 06:21 06:31 06:41 Temperature Pulse Rate 107 H 109 H 113 H Pulse Rate [ From Monitor] Respiratory 35 H 16 32 H Rate Blood Pressure 155/83 155/83 155/83 O2 Sat by Pulse 89 91 87 Oximetry 10/27/18 10/27/18 10/27/18 06:51 07:00 07:11 Temperature Pulse Rate 107 H 112 H 115 H Pulse Rate [ From Monitor] Respiratory 19 47 H 30 H Rate Blood Pressure 155/83 135/74 135/74 O2 Sat by Pulse 92 87 88 Oximetry 10/27/18 10/27/18 10/27/18 07:21 07:31 07:41 Temperature Pulse Rate 116 H 117 H 111 H Pulse Rate [ From Monitor] Respiratory 33 H 34 H 44 H Rate Blood Pressure 135/74 155/83 155/83 O2 Sat by Pulse 86 88 88 Oximetry 10/27/18 10/27/18 10/27/18 07:51 08:00 08:11 Temperature 99.1 F Pulse Rate 114 H 116 H 114 H Pulse Rate [ 126 H From Monitor] Respiratory 20 25 H 45 H Rate Blood Pressure 155/83 125/64 125/64 O2 Sat by Pulse 88 88 87 Oximetry 10/27/18 10/27/18 10/27/18 08:18 08:21 08:31 Temperature Pulse Rate 113 H 113 H 126 H Pulse Rate [ From Monitor] Respiratory 46 H 48 H 26 H Rate Blood Pressure 125/64 125/64 125/64 O2 Sat by Pulse 84 84 80 L Oximetry 10/27/18 10/27/18 10/27/18 08:41 08:51 09:01 Temperature Pulse Rate 123 H 113 H 108 H Pulse Rate [ From Monitor] Respiratory 23 46 H 41 H Rate Blood Pressure 125/64 125/64 125/64 O2 Sat by Pulse 84 93 92 Oximetry 10/27/18 10/27/18 10/27/18 09:10 09:21 09:31 Temperature Pulse Rate 112 H 103 H 106 H Pulse Rate [ From Monitor] Respiratory 24 35 H 21 Rate Blood Pressure 95/37 99/39 125/64 O2 Sat by Pulse 91 90 92 Oximetry 10/27/18 10/27/18 10/27/18 09:41 09:51 10:00 Temperature Pulse Rate 110 H 110 H 123 H Pulse Rate [ From Monitor] Respiratory 15 12 28 H Rate Blood Pressure 125/64 125/64 109/46 O2 Sat by Pulse 90 91 83 L Oximetry 10/27/18 10/27/18 10/27/18 10:11 10:21 10:31 Temperature Pulse Rate 116 H 114 H 115 H Pulse Rate [ From Monitor] Respiratory 49 H 29 H 11 L Rate Blood Pressure 109/46 109/46 109/46 O2 Sat by Pulse 80 L 77 L 76 L Oximetry 10/27/18 10/27/18 10/27/18 10:41 10:51 11:01 Temperature Pulse Rate 119 H 122 H 118 H Pulse Rate [ From Monitor] Respiratory 12 19 19 Rate Blood Pressure 109/46 109/46 109/46 O2 Sat by Pulse 73 L 71 L Oximetry 10/27/18 10/27/18 10/27/18 11:11 11:21 11:31 Temperature Pulse Rate 121 H 120 H 125 H Pulse Rate [ From Monitor] Respiratory 15 39 H 42 H Rate Blood Pressure 134/66 134/66 134/66 O2 Sat by Pulse 81 L 64 L 93 Oximetry 10/27/18 10/27/18 10/27/18 11:41 11:51 12:00 Temperature 99.8 F H Pulse Rate 119 H 128 H Pulse Rate [ 139 H From Monitor] Respiratory 41 H 35 H 36 H Rate Blood Pressure 134/66 134/66 O2 Sat by Pulse 94 96 96 Oximetry 10/27/18 10/27/18 10/27/18 12:01 12:10 12:21 Temperature Pulse Rate 120 H 121 H 124 H Pulse Rate [ From Monitor] Respiratory 43 H 40 H 20 Rate Blood Pressure 134/66 134/66 134/66 O2 Sat by Pulse 98 97 94 Oximetry 10/27/18 10/27/18 10/27/18 12:31 12:41 12:51 Temperature Pulse Rate 126 H 127 H 127 H Pulse Rate [ From Monitor] Respiratory 40 H 29 H 40 H Rate Blood Pressure 134/66 134/66 90/55 O2 Sat by Pulse 96 92 94 Oximetry 10/27/18 10/27/18 10/27/18 13:01 13:11 13:21 Temperature Pulse Rate 130 H 134 H 131 H Pulse Rate [ From Monitor] Respiratory 26 H 51 H 39 H Rate Blood Pressure 133/71 90/55 90/55 O2 Sat by Pulse 92 94 91 Oximetry 10/27/18 10/27/18 10/27/18 13:31 13:41 13:51 Temperature Pulse Rate 140 H 134 H 137 H Pulse Rate [ From Monitor] Respiratory 26 H 49 H 18 Rate Blood Pressure 90/55 90/55 90/55 O2 Sat by Pulse 86 93 90 Oximetry Constitutional: agitated (with increased work of breathing), other (morbidly obese) Eyes: non-icteric ENT: oropharynx moist Neck: no JVD Ascultation: Right: rales (course) Cardiovascular: regular rate and rhythm Gastrointestinal: normoactive bowel sounds, tender (mild left-sided), non- distended Integumentary: normal Extremities: no cyanosis, edema Neurologic: normal mental status, non-focal exam, CN II-XII normal, motor strength normal and Psychiatric: mood appropriate, affect normal CBC and BMP: 10/27/18 04:23 10/27/18 04:23 ABG, PT/INR, D-dimer: ABG POC ABG pH 7.407 (7.35-7.45) 10/27/18 03:28 POC ABG pCO2 40.5 (35-45) 10/27/18 03:28 POC ABG pO2 69 (80-105) L 10/27/18 03:28 POC ABG HCO3 25.5 10/27/18 03:28 POC ABG Total CO2 27 10/27/18 03:28 POC ABG O2 Sat 94 10/27/18 03:28 Abnormal lab findings: Abnormal Labs 10/24/18 10/24/18 10/24/18 14:20 20:44 20:44 WBC RBC 3.46 L Hgb 5.2 L* Hct 18.5 L* MCV 54 L MCH 15 L MCHC 28 L RDW 21.5 H Lymph % (Auto) Lymph # [place] # Seg Neutrophils % Seg Neuts % (Manual) 82.0 H Lymphocytes % (Manual) 0 L Nucleated RBC % 2.0 H Seg Neutrophils # Seg Neutrophils # Man 8.0 H Lymphocytes # (Manual) 0.0 L POC ABG pO2 Sodium Potassium 3.3 L BUN Creatinine 0.6 L Glucose POC Glucose Lactic Acid Calcium 8.0 L Magnesium Albumin 3.1 L Urine WBC (Auto) 161.0 H Crossmatch 10/24/18 10/24/18 10/24/18 20:44 23:00 23:00 WBC RBC Hgb Hct MCV MCH MCHC RDW Lymph % (Auto) Lymph # [place] # Seg Neutrophils % Seg Neuts % (Manual) Lymphocytes % (Manual) Nucleated RBC % Seg Neutrophils # Seg Neutrophils # Man Lymphocytes # (Manual) POC ABG pO2 Sodium Potassium BUN Creatinine Glucose POC Glucose Lactic Acid 2.60 H* Calcium Magnesium 1.40 L Albumin Urine WBC (Auto) Crossmatch See Detail 10/25/18 10/26/18 10/26/18 11:48 04:58 04:58 WBC 17.6 H RBC Hgb 7.6 L 7.0 L Hct 25.9 L D 23.7 L MCV 62 L MCH 18 L MCHC 29 L RDW 31.0 H Lymph % (Auto) 6.0 L Lymph # 1.1 L [place] # 1.3 H Seg Neutrophils % 86.2 H Seg Neuts % (Manual) Lymphocytes % (Manual) Nucleated RBC % Seg Neutrophils # 15.2 H Seg Neutrophils # Man Lymphocytes # (Manual) POC ABG pO2 Sodium 134 L Potassium BUN 4 L Creatinine Glucose 125 H POC Glucose Lactic Acid Calcium 7.7 L Magnesium Albumin Urine WBC (Auto) Crossmatch 10/26/18 10/26/18 10/27/18 07:41 11:04 03:28 WBC RBC Hgb Hct MCV MCH MCHC RDW Lymph % (Auto) Lymph # [place] # Seg Neutrophils % Seg Neuts % (Manual) Lymphocytes % (Manual) Nucleated RBC % Seg Neutrophils # Seg Neutrophils # Man Lymphocytes # (Manual) POC ABG pO2 69 L Sodium Potassium BUN Creatinine Glucose POC Glucose 121 H 124 H Lactic Acid Calcium Magnesium Albumin Urine WBC (Auto) Crossmatch 10/27/18 10/27/18 10/27/18 04:23 04:23 04:23 WBC 20.9 H RBC Hgb 8.4 L 8.4 L Hct 28.4 L 29.1 L MCV 62 L MCH 18 L MCHC RDW 30.3 H Lymph % (Auto) Lymph # [place] # Seg Neutrophils % Seg Neuts % (Manual) Lymphocytes % (Manual) Nucleated RBC % Seg Neutrophils # Seg Neutrophils # Man Lymphocytes # (Manual) POC ABG pO2 Sodium Potassium 3.4 L BUN 5 L Creatinine 0.5 L Glucose 109 H POC Glucose Lactic Acid Calcium Magnesium Albumin Urine WBC (Auto) Crossmatch
[2018-10-27] MEDS ORDERED: MORPHINE IV ONE (15:41)
[2018-10-27] MEDS ORDERED: NACL 0.9% 1000 ML 1,000 ML ONE ×2 (16:25→16:38)
--- NOTE | 2018-10-27 17:18 | Event Note ---
Date: 10/27/18 While preparing to put extra lines, the patient became bradycardic. Epigastrium following by CPR after poor/absent pulses was initiated, following ACLS protocol, for 2-2 minutes minutes. Patient's heart rate recovered a pulse was noted vigorously at the carotid level. IOL was placed in by nursing, arterial line by respiratory therapy and an esthesia well also secured a central line. Discussed findings with the family in detail. Critically ill patient. Will adjust PEEP up depending on blood pressure status, pressors to keep map > 65 in order to stabilize oxygenation. I'm afraid that he will wind this, she may need additional measures including ECMO, at this rate. Critical care time 40 minutes [id number] evaluation coordination of care
[2018-10-27 17:28] VITALS: BP 96/40
--- NOTE | 2018-10-27 17:38 | Event Note ---
Date: 10/27/18 Patient was Intubated in the IMCU by Anesthesiology, Dr. Carrero with Dr. Carballo in attendance. She failed bipap due to worsening hypoxemia. She went to the ICU. She desat and had a PEA arrest defer to Dr. Carballo who ran the code. She as been hypotensive ever since. Arterial line was placed by respiratory. Dr. Carballo gave IVF bolus x 1. She again became hypotensive, sbp dropped to 50 and change nurse called another CODE Blue for more nursing help. She never lost a pulse though. Patient has remained hypoxic despite being on 100% FIO2 on PEEP 12. the PEEP was increased to 15 briefly and she became hypotensive, so PEEP was turned back down to 12.
--- NOTE | 2018-10-27 17:40 | Event Note ---
Date: 10/27/18 ABG after art.line showing severe metabolic acidosis w hypoxemia. P: HCO3 2 amp now PEEP to 14 cm if BP ALLOWS Critical care time was 31 minutes of [id number] evaluation and coordination of care
--- NOTE | 2018-10-27 17:42 | Progress Note ---
Subjective Date of service: 10/27/18 Principal diagnosis: tubo-ovarian abscess Interval history: Requested to emergently place central line. Attempted RIJ then R subclavian supraclavicular approach. TLC placed and blood return x 3 CXR ordered when pt is stable Objective - Constitutional Vitals: Vital Signs - 12hr 10/27/18 10/27/18 10/27/18 05:41 05:49 05:51 Temperature Pulse Rate 111 H 105 H 105 H Pulse Rate [ From Monitor] Respiratory 18 40 H 44 H Rate Blood Pressure 94/64 94/64 94/64 O2 Sat by Pulse 89 92 93 Oximetry 10/27/18 10/27/18 10/27/18 06:01 06:11 06:21 Temperature Pulse Rate 108 H 106 H 107 H Pulse Rate [ From Monitor] Respiratory 46 H 31 H 35 H Rate Blood Pressure 155/83 155/83 155/83 O2 Sat by Pulse 92 91 89 Oximetry 10/27/18 10/27/18 10/27/18 06:31 06:41 06:51 Temperature Pulse Rate 109 H 113 H 107 H Pulse Rate [ From Monitor] Respiratory 16 32 H 19 Rate Blood Pressure 155/83 155/83 155/83 O2 Sat by Pulse 91 87 92 Oximetry 10/27/18 10/27/18 10/27/18 07:00 07:11 07:21 Temperature Pulse Rate 112 H 115 H 116 H Pulse Rate [ From Monitor] Respiratory 47 H 30 H 33 H Rate Blood Pressure 135/74 135/74 135/74 O2 Sat by Pulse 87 88 86 Oximetry 10/27/18 10/27/18 10/27/18 07:31 07:41 07:51 Temperature Pulse Rate 117 H 111 H 114 H Pulse Rate [ From Monitor] Respiratory 34 H 44 H 20 Rate Blood Pressure 155/83 155/83 155/83 O2 Sat by Pulse 88 88 88 Oximetry 10/27/18 10/27/18 10/27/18 08:00 08:11 08:18 Temperature 99.1 F Pulse Rate 116 H 114 H 113 H Pulse Rate [ 126 H From Monitor] Respiratory 25 H 45 H 46 H Rate Blood Pressure 125/64 125/64 125/64 O2 Sat by Pulse 88 87 84 Oximetry 10/27/18 10/27/18 10/27/18 08:21 08:31 08:41 Temperature Pulse Rate 113 H 126 H 123 H Pulse Rate [ From Monitor] Respiratory 48 H 26 H 23 Rate Blood Pressure 125/64 125/64 125/64 O2 Sat by Pulse 84 80 L 84 Oximetry 10/27/18 10/27/18 10/27/18 08:51 09:01 09:10 Temperature Pulse Rate 113 H 108 H 112 H Pulse Rate [ From Monitor] Respiratory 46 H 41 H 24 Rate Blood Pressure 125/64 125/64 95/37 O2 Sat by Pulse 93 92 91 Oximetry 10/27/18 10/27/18 10/27/18 09:21 09:31 09:41 Temperature Pulse Rate 103 H 106 H 110 H Pulse Rate [ From Monitor] Respiratory 35 H 21 15 Rate Blood Pressure 99/39 125/64 125/64 O2 Sat by Pulse 90 92 90 Oximetry 10/27/18 10/27/18 10/27/18 09:51 10:00 10:11 Temperature Pulse Rate 110 H 123 H 116 H Pulse Rate [ From Monitor] Respiratory 12 28 H 49 H Rate Blood Pressure 125/64 109/46 109/46 O2 Sat by Pulse 91 83 L 80 L Oximetry 10/27/18 10/27/18 10/27/18 10:21 10:31 10:41 Temperature Pulse Rate 114 H 115 H 119 H Pulse Rate [ From Monitor] Respiratory 29 H 11 L 12 Rate Blood Pressure 109/46 109/46 109/46 O2 Sat by Pulse 77 L 76 L 73 L Oximetry 10/27/18 10/27/18 10/27/18 10:51 11:01 11:11 Temperature Pulse Rate 122 H 118 H 121 H Pulse Rate [ From Monitor] Respiratory 19 19 15 Rate Blood Pressure 109/46 109/46 134/66 O2 Sat by Pulse 71 L 81 L Oximetry 10/27/18 10/27/18 10/27/18 11:21 11:31 11:41 Temperature Pulse Rate 120 H 125 H 119 H Pulse Rate [ From Monitor] Respiratory 39 H 42 H 41 H Rate Blood Pressure 134/66 134/66 134/66 O2 Sat by Pulse 64 L 93 94 Oximetry 10/27/18 10/27/18 10/27/18 11:51 12:00 12:01 Temperature 99.8 F H Pulse Rate 128 H 120 H Pulse Rate [ 139 H From Monitor] Respiratory 35 H 36 H 43 H Rate Blood Pressure 134/66 134/66 O2 Sat by Pulse 96 96 98 Oximetry 10/27/18 10/27/18 10/27/18 12:10 12:21 12:31 Temperature Pulse Rate 121 H 124 H 126 H Pulse Rate [ From Monitor] Respiratory 40 H 20 40 H Rate Blood Pressure 134/66 134/66 134/66 O2 Sat by Pulse 97 94 96 Oximetry 10/27/18 10/27/18 10/27/18 12:41 12:51 13:01 Temperature Pulse Rate 127 H 127 H 130 H Pulse Rate [ From Monitor] Respiratory 29 H 40 H 26 H Rate Blood Pressure 134/66 90/55 133/71 O2 Sat by Pulse 92 94 92 Oximetry 10/27/18 10/27/18 10/27/18 13:11 13:21 13:31 Temperature Pulse Rate 134 H 131 H 140 H Pulse Rate [ From Monitor] Respiratory 51 H 39 H 26 H Rate Blood Pressure 90/55 90/55 90/55 O2 Sat by Pulse 94 91 86 Oximetry 10/27/18 10/27/18 10/27/18 13:41 13:51 14:01 Temperature Pulse Rate 134 H 137 H 141 H Pulse Rate [ From Monitor] Respiratory 49 H 18 54 H Rate Blood Pressure 90/55 90/55 90/55 O2 Sat by Pulse 93 90 88 Oximetry 10/27/18 10/27/18 10/27/18 14:11 14:20 14:31 Temperature Pulse Rate 138 H 139 H 137 H Pulse Rate [ From Monitor] Respiratory 36 H 68 H 26 H Rate Blood Pressure 127/67 127/67 127/67 O2 Sat by Pulse 82 L 89 83 L Oximetry 10/27/18 10/27/18 10/27/18 14:41 14:50 15:30 Temperature Pulse Rate 138 H 144 H 129 H Pulse Rate [ From Monitor] Respiratory 42 H 42 H Rate Blood Pressure 127/67 175/103 96/40 O2 Sat by Pulse 81 L 92 Oximetry - Labs CBC & Chem 7: 10/27/18 04:23 10/27/18 04:23 Labs: Abnormal lab results 10/27/18 10/27/18 10/27/18 Range/Units 03:28 04:23 04:23 WBC 20.9 H (4.5-11.0) K/mm3 Hgb 8.4 L (10.1-14.3) gm/dl Hct 28.4 L (30.3-42.9) % MCV 62 L (79-97) fl MCH 18 L (28-32) pg RDW 30.3 H (13.2-15.2) % POC ABG pH (7.35-7.45) POC ABG pCO2 (35-45) POC ABG pO2 69 L (80-105) Potassium 3.4 L (3.6-5.0) mmol/L BUN 5 L (7-17) mg/dL Creatinine 0.5 L (0.7-1.2) mg/dL Glucose 109 H (65-100) mg/dL 10/27/18 10/27/18 10/27/18 Range/Units 04:23 15:54 16:06 WBC (4.5-11.0) K/mm3 Hgb 8.4 L (10.1-14.3) gm/dl Hct 29.1 L (30.3-42.9) % MCV (79-97) fl MCH (28-32) pg RDW (13.2-15.2) % POC ABG pH 7.037 L 7.013 L (7.35-7.45) POC ABG pCO2 73.9 H 69.3 H (35-45) POC ABG pO2 30 L 38 L (80-105) Potassium (3.6-5.0) mmol/L BUN (7-17) mg/dL Creatinine (0.7-1.2) mg/dL Glucose (65-100) mg/dL 10/27/18 Range/Units 17:10 WBC (4.5-11.0) K/mm3 Hgb (10.1-14.3) gm/dl Hct (30.3-42.9) % MCV (79-97) fl MCH (28-32) pg RDW (13.2-15.2) % POC ABG pH 7.012 L (7.35-7.45) POC ABG pCO2 52.1 H (35-45) POC ABG pO2 53 L (80-105) Potassium (3.6-5.0) mmol/L BUN (7-17) mg/dL Creatinine (0.7-1.2) mg/dL Glucose (65-100) mg/dL
[2018-10-27] MEDS ORDERED: SODIUM BICARBONATE 150 MEQ in D5W 1,000 ML IV SCH (18:00)
[2018-10-27] MEDS ORDERED: ADRENALIN 8 MG in NACL 0.9% 250ML 242 ML IV SCH (18:00)
[2018-10-27] MEDS ORDERED: LEVOPHED 8 MG in NACL 0.9% 250ML 242 ML IV SCH (18:00)
[2018-10-27] MEDS ORDERED: INTROPIN DRIP 800 MG/D5W 250 ML 800 MG/250 ML BAG IV SCH (18:00)
--- NOTE | 2018-10-27 18:48 | Event Note ---
Date: 10/27/18 Another Code Blue called prior to 6pm for PEA After >45 minutes of CPR/ACLS protocol, we were unable to restore a pulse. Blood glucose was 20 and she was treated with dextrose, more bicarbonate, calcium. She went from PEA to asystole to PEA to asystole to PEA to asystole. Eyes fixed and dilated, no breath sounds, no heart tones, no gag. time of : 1838 CCT 45 minutes
--- NOTE | 2018-10-27 18:49 | Death Summary ---
Summary - Providers Date of service: 10/27/18 Consults: 10/25/18 00:05 Consult to Physician [CONS] Urgent Comment: md rhoades Consulting Provider: ANTON JAMES Physician Instructions: Reason For Exam: toa 10/25/18 10:00 Consult to Physician [CONS] Routine Comment: Consulting Provider: NATANAEL OCHOA Physician Instructions: I notified Reason For Exam: Tubo-ovarian abscess 10/26/18 09:03 Consult to Interventional Radiology [CONS] Routine Consulting Provider: IVAN RAYO Reason For Exam: tubulo-ovarian abscess, evaluate for drainage 10/26/18 11:08 Consult to Physician [CONS] Routine Comment: Consulting Provider: LENORE CABRERA Physician Instructions: Reason For Exam: respiratory failure 10/27/18 12:42 Consult to Case Management [CONS] Routine Services Needed at Discharge: Actuarial Technician Additional Physician Instructions: Patient first name is spelled wrong. Attending: YUNIOR WHYTE - summary Date of admission: 10/25/18 01:16 Date of : 10/26/18 Significant findings: Patient is a 28 yo woman with a history of anemia and heavy menses who presented to [facility] ED with left flank abd pains and admitted on 10/25/18 for suspect TOA abscess. surgeon/president was called and wanted to see patient as a knowledge management consultant; so Hospitalist had to admit. On, 10/26/18, she became SOB and fluid overload. * CT abd/pelvis without contrast IMPRESSION: 1. Abnormal soft tissue mass in the left adnexal a that likely represents an enlarged ovary with edema/inflammatory change in the adjacent fat and adjacent fascial planes with a possible small amount of free fluid in the adjacent region. Differential diagnosis includes infectious etiology (possible ovarian abscess) and noninfectious etiologies, tumor or possibly ovarian torsion. 2. Mildly prominent intra-abdominal and retroperitoneal lymph nodes and mild splenomegaly. Transvaginal ultrasound to evaluate for the presence or absence of flow in the left ovary and CT abdomen and pelvis with IV contrast for evaluation for possible ovarian abscess would be helpful for further evaluation. * CT abd/pelvis with IV contrast IMPRESSION: 1. Heterogeneously enhancing mass in the left adnexal with stranding of the adjacent fat and a small amount of fluid in the left pericolic gutter. This patient with a history of abdominal pain and sepsis this most likely represents a tubo-ovarian abscess. 2. Mild splenomegaly and mildly prominent intraperitoneal and retroperitoneal lymph nodes. 3. Small probable cyst left kidney. 4. Midline anterior abdominal wall hernia that contains fat. * US pelvis duplex complete IMPRESSION: 1. Visualization detail on the transabdominal study is limited due to patient's large body habitus. 2. Demonstration of large complex structure in the left adnexal a that likely represents the fallopian tube and ovary. A tubo-ovarian abscess needs to be considered. 3. Arterial flow is demonstrated in the left ovary utilizing Doppler waveform imaging. Sepsis due to suspected Tubo-ovarian abscess: surgeon/president consulted, initially treated with IV Unasyn + oral Doxcycline (oral changed due to n/v), IVF==>I consulted ID and they adjusted abx and consulted IR to evaluate for drainage. She was scheduled for CT guided aspiration of TOA on Sunday. Patient remained febrile despite antibiotics throughout the weekend. Clinically, she was fluid o verload on Sunday and pulmonology was consulted. The ARDS, pulmonary edema, hypoxemia, acidosis was most likely from overwhelming Severe sepsis, in which the bp was responding to volume resuscitation until the pulmonary edema occurred. Acute on chronic blood loss anemia, hgb 5.2 most Menorrhagia: 2 units PRBC transfused, Acute hypoxic respiratory failure due to pulmonary edema, ARDS and severe anemia, poa: Intubating now per Dr. Carballo Pulmonary edema, given lasix 40mg iv x 1 yesterday, stopped fluids, ordered xray which confirmed the diagnosis and she was seen by Folder Inspector Dr. Carballo yesterday Hypokalemia: repleted, recheck AM Hypomagnesemia: repleted, recheck in AM UTI with sepsis vs PID leading to Tubo-Ovarian abscess: treat as above Morbid Obese, bmi 50.2: pastoral counselor on lifestyle modification [place] diagnosis by boiler/chiller technician, Dr. James, this is interesting considering she is in a same sex relationship and adopted kids due to same sex relationship per patient: on abx per boiler/chiller technician full code 10/27/18: I gave her another dose of lasix 40mg iv x 1 this morning and will give another dose later. In the morning when I round with nurse; I asked the nurse to order ABGs and call Dr. Carballo. She needs ECHO, CTA chest once stabilized. She was scheduled for CT guided aspiration of TOA on Sunday. Dr. Carballo came around 1400, pt was working hard to breath. BP was stable but she was tachycardia, tachypneic and hypoxic despite being on BIPAP 100%. ABG was unsuccessful earlier per Respiratory therapy. Code was called. Patient was intubated by Anesthesia with Dr. Carballo present and sent to the ICU. She nuvia down to PEA and first Chao hernandez was called, Dr. Carballo was there and managing. When I arrived, patient has ROSC after chest compressions and 1 dose of epi. Then Another Chao Hernandez was called prior to 6pm for PEA; After >45 minutes of CPR/ACLS protocol, we were unable to restore a pulse. Blood glucose was 20 and she was treated with dextrose, more bicarbonate, calcium. She went from PEA to asystole to PEA to asystole to PEA to asystole. Eyes fixed and dilated, no breath sounds, no heart tones, no gag. Time of : 1838, I pronounced Cause of : Overwhelming Sepsis from tubo-ovarian abscess leading to ARDS, pulmonary edema, acute hypoxic respiratory failure and PEA. Around 2 pm, we really never got her O2 saturation above 88% consistently. Family at nursing station, Mother, Mariposa who I consoled and significant other Yolice also present. Time of discharge 32 minutes
--- NOTE | 2018-10-29 08:20 | XRay Report ---
FINAL REPORT EXAM: XR CHEST 1V AP HISTORY: line placement TECHNIQUE: AP portable view of the chest PRIORS: CXR 10/27/2018 at 2035 hours FINDINGS: Lines, tubes, and devices: endotracheal tube terminates 4.5 cm above the dhaval. Nasogastric tube santana s been placed with the tip in the proximal stomach. The side-port is in the distal esophagus and can be advanced 5 cm into the stomach. Lungs and pleura: Trachea is normal in position. Diffuse bilateral alveolar infiltrates are again not ed, improved on the left Cardiomediastinal silhouette: Cardiac and mediastinal silhouettes are unremarkable. Other: Bony structures are intact. IMPRESSION: Diffuse bilateral infiltrates again noted, improved on the left. Nasogastric tube tip is in the stoma ch although the side port is in the distal esophagus. This can be advanced 5 cm into the stomach.
--- NOTE | 2018-10-29 16:42 | XRay Report ---
FINAL REPORT EXAM: XR CHEST 1V AP HISTORY: ET TUBE PLACEMENT TECHNIQUE: AP portable view of the chest PRIORS: CXR 10/26/2018 FINDINGS: Lines, tubes, and devices: Endotracheal tube terminates 3.5 cm above the dhaval. Lungs and pleura: Trachea is normal in position. Diffuse bilateral alveolar infiltrates are more sign ificant than seen previously. Findings are consistent with pulmonary edema versus, less likely, pneum onia Cardiomediastinal silhouette: Cardiac and mediastinal silhouettes are unremarkable. Other: Bony structures are intact. IMPRESSION: ET tube in satisfactory position. Worsening bilateral alveolar infiltrates.
== END 2018-10-27 18:39 | DRG 871 ==
LOC: ED 13:12 → IMCU 10-25 01:16 → CC1 10-27 14:39
PROVIDERS: ADMIT Internal Medicine; ATTEND Internal Medicine
PROC: 30233N1 Transfusion of Nonautologous Red Blood Cells into Peripheral Vein, Percutaneous Approach (ICD-10-PCS; principal; 2018-10-25)
PROC: 4A033R1 Measurement of Arterial Saturation, Peripheral, Percutaneous Approach (ICD-10-PCS; 2018-10-27)
PROC: 5A1935Z Respiratory Ventilation, Less than 24 Consecutive Hours (ICD-10-PCS; 2018-10-27)
PROC: 0BH17EZ Insertion of Endotracheal Airway into Trachea, Via Natural or Artificial Opening (ICD-10-PCS; 2018-10-27)
PROC: 5A09357 Assistance with Respiratory Ventilation, Less than 24 Consecutive Hours, Continuous Positive Airway Pressure (ICD-10-PCS; 2018-10-27)
PROC: 5A12012 Performance of Cardiac Output, Single, Manual (ICD-10-PCS; 2018-10-27)
PROC: 05HY33Z Insertion of Infusion Device into Upper Vein, Percutaneous Approach (ICD-10-PCS; 2018-10-27)
PROC: 03HY32Z Insertion of Monitoring Device into Upper Artery, Percutaneous Approach (ICD-10-PCS; 2018-10-27)
PROC: 4A133B1 Monitoring of Arterial Pressure, Peripheral, Percutaneous Approach (ICD-10-PCS; 2018-10-27)
PROC: 4A133J1 Monitoring of Arterial Pulse, Peripheral, Percutaneous Approach (ICD-10-PCS; 2018-10-27)
DX: A41.9 Sepsis, unspecified organism (principal); J96.01 Acute respiratory failure with hypoxia; D62 Acute posthemorrhagic anemia; N39.0 Urinary tract infection, site not specified; Z68.43 Body mass index [BMI] 50.0-59.9, adult; N70.93 Salpingitis and oophoritis, unspecified; E87.70 Fluid overload, unspecified; E87.6 Hypokalemia; I46.9 Cardiac arrest, cause unspecified; E83.42 Hypomagnesemia; N73.9 Female pelvic inflammatory disease, unspecified; E66.01 Morbid (severe) obesity due to excess calories; N92.0 Excessive and frequent menstruation with regular cycle; E16.2 Hypoglycemia, unspecified; A59.01 Trichomonal vulvovaginitis; N93.9 Abnormal uterine and vaginal bleeding, unspecified; Z71.3 Dietary counseling and surveillance; Z82.49 Family history of ischemic heart disease and other diseases of the circulatory system; Z72.89 Other problems related to lifestyle; Z79.899 Other long term (current) drug therapy
CPT/HCPCS: 36415; 36600; 36620; 71045; 74176; 74177; 80048; 80053; 81001; 81025; 82140; 82803; 82962; 83735; 83880; 85007; 85014; 85018; 85025; 85027; 85730; 86592; 86850; 86900; 86901; 86920; 87040; 87086; 87210; 87591; 87806; 93975; 94002; 94003; 94660; 94760; 96374; 99291; G0378; J0171; J0290; J0295; J0330; J0461; J0696; J1265; J1580; J1720; J1885; J1940; J2270; J2405; J2704; J3475; J3480; J7030; J7040; J7050; P9016; Q9967